=== PATIENT | female | born 1935 | race Caucasian/White ===

== ENCOUNTER 2017-05-09 22:09 | Inpatient (IN) | payer MEDICARE, OTHER ==
[2017-05-10] MEDS ORDERED: NORMAL SALINE 1000 ML 1,000 ML IV ONE (01:54)
[2017-05-10] MEDS ORDERED: MORPHINE SULFATE 10 MG/ML INJ IV ONE (01:54)
[2017-05-10] MEDS ORDERED: ONDANSETRON HCL INJ/PF 4 MG/2 ML SDV IV ONE ×2 (01:54→05:32)
[2017-05-10 02:19] LABS: ABSOLUTE LYMPHOCYTES (AUTO) 1.5 10^3/uL (0.5-4.7); ABSOLUTE MONOCYTES (AUTO) 1.2 10^3/uL (0.1-1.4); ABSOLUTE NEUT (AUTO) 11.7 10^3/uL (1.7-8.2); BASOPHILS % (AUTO) 0.3 % (0-2); HEMATOCRIT 44.6 % (36.0-47.0); HEMOGLOBIN 14.6 g/dL (12.0-15.5); HGB HCT DIFFERENCE -0.8; LYMPHOCYTES % (AUTO) 10.2 % (13-45); MEAN CORPUSCULAR HGB CONC 32.7 g/dL (32.0-36.0); MEAN CORPUSCULAR VOLUME 92 fl (80-97); MONOCYTES % (AUTO) 8.1 % (3-13); RED BLOOD COUNT 4.86 10^6/uL (3.72-5.28); RED CELL DISTRIBUTION WIDTH 12.8 % (11.5-14.0); SEGMENTED NEUTROPHILS % (AUTO) 81.4 % (42-78); WHITE BLOOD COUNT 14.4 10^3/uL (4.0-10.5)
[2017-05-10 02:37] LABS: ALANINE AMINOTRANSFERASE 30 U/L (9-52); ALBUMIN 4.1 g/dL (3.5-5.0); ALKALINE PHOSPHATASE 60 U/L (38-126); ANION GAP 19 (5-19); ASPARTATE AMINO TRANSFERASE 19 U/L (14-36); BILIRUBIN,DIRECT 0.4 mg/dL (0.0-0.4); BILIRUBIN,TOTAL 2.1 mg/dL (0.2-1.3); BLOOD UREA NITROGEN 19 mg/dL (7-20); CALCIUM 10.2 mg/dL (8.4-10.2); CARBON DIOXIDE 18 mmol/L (22-30); CHLORIDE 105 mmol/L (98-107); CREATININE RESULT 0.53 mg/dL (0.52-1.25); GLUCOSE 323 mg/dL (75-110); POTASSIUM 4.3 mmol/L (3.6-5.0); SODIUM 141.8 mmol/L (137-145); TOTAL PROTEIN 7.7 g/dL (6.3-8.2)
[2017-05-10 05:01] LABS: APPEARANCE,URINE CLEAR; BILIRUBIN,URINE NEGATIVE (NEGATIVE); GLUCOSE, URINE >=500 mg/dL (NEGATIVE); KETONES,URINE 20 mg/dL (NEGATIVE); LEUKOCYTE ESTERASE,URINE NEGATIVE (NEGATIVE); NITRITE,URINE NEGATIVE (NEGATIVE); PROTEIN,URINE NEGATIVE (NEGATIVE); URINE SPECIFIC GRAVITY 1.032; UROBILINOGEN,URINE NEGATIVE mg/dL (<2.0)
--- NOTE | 2017-05-10 05:09 | RADIOLOGY REPORT (SQ) ---
EXAM DESCRIPTION: CT ABD/PELVIS WITH IV ORAL COMPLETED DATE/TIME: 05/10/2017 4:46 am REASON FOR STUDY: abd pain, vomiting, no BM 4 days, hernia COMPARISON: None. TECHNIQUE: CT scan of the abdomen and pelvis performed using helical scanning technique with dynamic intravenous contrast injection. No oral contrast. Images reviewed with lung, soft tissue, and bone windows. Reconstructed coronal and sagittal MPR images reviewed. Delayed images for evaluation of the urinary system also acquired. All images stored on PACS. All CT scanners at this facility use dose modulation, iterative reconstruction, and/or weight based d osing when appropriate to reduce radiation dose to as low as reasonably achievable (ALARA). [facility]: Dose Right [facility]: CareDose [facility]: Dose Right [facility]: Teradose 4D [facility]: Netpulse CONTRAST TYPE AND DOSE: contrast/concentration: Isovue 370.00 mg/ml; Total Contrast Delivered: 90.0 ml; Total Saline Delivered: 70.0 ml RENAL FUNCTION: Creatinine 0.5 RADIATION DOSE: 1956 LIMITATIONS: None. FINDINGS: LOWER CHEST: Small peripheral interstitial markings at the lung bases. LIVER: Normal size. No masses or dilated ducts. Mild hepatic steatosis. SPLEEN: Normal size. No focal lesions. PANCREAS: No masses. No significant calcifications. No adjacent inflammation or peripancreatic fluid collections. Pancreatic duct not dilated. GALLBLADDER: Gallstones. No inflammatory changes to suggest cholecystitis. ADRENAL GLANDS: No significant masses or asymmetry. RIGHT KIDNEY AND URETER: No solid masses. No significant calcifications. No hydronephrosis or hyd roureter. LEFT KIDNEY AND URETER: No solid masses. No significant calcifications. No hydronephrosis or hydr oureter. AORTA AND VESSELS: No aneurysm. No dissection. Renal arteries, SMA, celiac without stenosis. Moderat e atherosclerosis. RETROPERITONEUM: No retroperitoneal adenopathy, hemorrhage or masses. BOWEL AND PERITONEAL CAVITY: 12 cm ventral herniation of small bowel of the anterior pelvic wall with facial defect measuring 3.4 cm. Moderate associated bowel wall thickening of the herniated segment. There is mild fluid distention of the small bowel before and after the hernia with air-fluid levels and S diameters measuring 2.7 cm. Orally ingested contrast is seen in the jejunum and diffuselydilu kolton in the proximal ileum previous to the herniation. Moderate colonic diverticulosis. APPENDIX: Normal. PELVIS: No mass or free fluid. Normal bladder. ABDOMINAL WALL: As above. BONES: 0.7 cm grade 1 L4 anterolisthesis, small-moderate desiccated disc bulge, and moderate lower maycol mbar spondylosis. The OTHER: No other significant finding. IMPRESSION: Small bowel hernia of the anterior pelvic wall with low-moderate grade obstruction and/o r ileus. Cholelithiasis. TECHNICAL DOCUMENTATION: JOB ID: [id number] Quality ID # [id number]: Final reports with documentation of one or more dose reduction techniques (e.g., Au tomated exposure control, adjustment of the mA and/or kV according to patient size, use of iterative reconstruction technique) 2010 [employer]- All Rights Reserved
--- NOTE | 2017-05-10 05:28 | ER Document Report ---
ED GI/ - General Chief Complaint: Abdominal Pain Stated Complaint: ABDOMINAL PAIN Time Seen by Provider: 05/10/17 01:45 Notes: Patient is an 81 year old female that comes to the ED for chief complaint of abdominal pain. She states for the past 4 days she has not had a bowel movement (had a normal one 4 days ago), and she has had 1-2 episodes of vomiting daily since that time. She denies fever, dysuria, flank pain, chest pain, shortness of breath. Pain is mid abdomen. PMH of DMII, hypothyroidism. TRAVEL OUTSIDE OF THE [place] IN LAST 30 DAYS: No - Related Data Allergies/Adverse Reactions: No Known Allergies Allergy (Verified 03/01/14 03:24) Past Medical History - General Information source: Patient, Relative - son - Social History Smoking Status: Never Smoker Frequency of alcohol use: None Drug Abuse: None Lives with: Family Family History: Reviewed & Not Pertinent - Past Medical History Cardiac Medical History: Reports: Hx Hypercholesterolemia, Hx Hypertension Endocrine Medical History: Reports: Hx Diabetes Mellitus Type 2 Renal/ Medical History: Denies: Hx Peritoneal Dialysis Musculoskeltal Medical History: Reports Hx Arthritis Past Surgical History: Reports: Hx Tonsillectomy - adnoids. - Immunizations Hx Diphtheria, Pertussis, Tetanus Vaccination: No Review of Systems - Review of Systems Constitutional: No symptoms reported EENT: No symptoms reported Cardiovascular: No symptoms reported Respiratory: No symptoms reported Gastrointestinal: See HPI Genitourinary: No symptoms reported Female Genitourinary: No symptoms reported Musculoskeletal: No symptoms reported Skin: No symptoms reported Hematologic/Lymphatic: No symptoms reported Neurological/Psychological: No symptoms reported Physical Exam - Vital signs Vitals: Temp Pulse Resp BP Pulse Ox 98.2 F 87 17 165/89 H 98 05/09/17 22:24 05/09/17 22:24 05/09/17 22:24 05/09/17 22:24 05/09/17 22:24 Interpretation: Normal - General General appearance: Alert, Other - patient with dry mucous membranes, slightly pale, but not in distress - HEENT Head: Normocephalic, Atraumatic Eyes: Normal Eyelashes: Normal Pupils: PERRL Mucous membranes: Dry Pharynx: Normal Neck: Normal - Respiratory Respiratory status: No respiratory distress Chest status: Nontender Breath sounds: Normal. No: Decreased air movement, Wheezing Chest palpation: Normal - Cardiovascular Rhythm: Regular. No: Tachycardia Heart sounds: Normal auscultation, S1 appreciated, S2 appreciated - Abdominal Inspection: Normal, Other - There is a large ventral lower abdominal hernia on examination, the area is not particularly tender, I have unable to reduce this although patient does not cry out or have significant pain with attempt to reduce. There is generalized abdominal tenderness otherwise. No guarding. Bowel sounds: Normal - Bowel sounds heard throughout including over the hernia - Back Back: Normal, Nontender. No: Tender, CVA tenderness - Extremities General upper extremity: Normal inspection, Nontender, Normal color, Normal ROM , Normal temperature General lower extremity: Normal inspection, Nontender, Normal color, Normal ROM , Normal temperature, Normal weight bearing. No: Georgie's sign - Neurological Neuro grossly intact: Yes Cognition: Normal Orientation: AAOx4 [place] Coma Scale Eye Opening: Spontaneous [place] Coma Scale Verbal: Oriented [place] Coma Scale Motor: Obeys Commands [place] Coma Scale Total: 15 Speech: Normal Motor strength normal: LUE, RUE, LLE, RLE Sensory: Normal - Psychological Associated symptoms: Normal affect, Normal mood - Skin Skin Temperature: Warm Skin Moisture: Dry Skin Color: Normal Course - Re-evaluation Re-evalutation: CBC showing leukocytosis at 14, patient will be admitted to the surgical service. Nonspecific. No anemia. Chemistry shows some hyperglycemia with slightly low bicarbonate but normal anion ashli. Giving IV fluids. LFTs normal. Direct Bilirubin normal. Lipase normal. Urinalysis also shows evidence of dehydration. No urinary tract infection. Patient asymptomatic on reevaluation, tolerating contrast well. CAT scan will be performed to further evaluate abdominal symptoms and hernia and rule out obstruction. CT showing hernia with small bowel, low to moderate grade obstruction versus ileus, cholelithiasis with no evidence of cholecystitis. Discussed with Dr. Ramsya. Will place NG tube, consult surgeon. Able to place 16 Fr nasogastric tube, placed on suction. 05/10/17 06:07 Spoke with surgeon regional office coordinator Dr. Samaniego he states he will come evaluate the patient.. Patient will be admitted to the surgical service. - Vital Signs Vital signs: Temp Pulse Resp BP Pulse Ox 98.2 F 87 17 165/89 H 98 05/09/17 22:24 05/09/17 22:24 05/09/17 22:24 05/09/17 22:24 05/09/17 22:24 - Laboratory Result Diagrams: 05/10/17 02:10 05/10/17 02:10 Laboratory results interpreted by me: 05/10/17 05/10/17 05/10/17 02:10 02:10 04:30 WBC 14.4 H Seg Neutrophils % 81.4 H Lymphocytes % 10.2 L Absolute Neutrophils 11.7 H Carbon Dioxide 18 L Glucose 323 H Total Bilirubin 2.1 H Urine Glucose (UA) >=500 H Urine Ketones 20 H - Diagnostic Test Radiology reviewed: Image reviewed, Reports reviewed Discharge - Discharge Clinical Impression: Abdominal pain Qualifiers: Abdominal location: generalized Qualified Code(s): R10.84 - Generalized abdominal pain Ventral hernia Qualifiers: Obstruction and gangrene presence: with obstruction but without gangrene Qualified Code(s): K43.6 - Other and unspecified ventral hernia with obstruction , without gangrene Vomiting Qualifiers: Vomiting type: unspecified Vomiting Intractability: non-intractable Nausea presence: with nausea Qualified Code(s): R11.2 - Nausea with vomiting, unspecified Disposition: ADMITTED INPATIENT Admitting Provider: Surgicalist Unit Admitted: Surgical Floor
[2017-05-10] MEDS: NORMAL SALINE 1000 ML 1,000 ML IV PRN ×3 (05:40→17:47)
--- NOTE | 2017-05-10 07:57 | RADIOLOGY REPORT (SQ) ---
EXAM DESCRIPTION: CHEST SINGLE VIEW COMPLETED DATE/TIME: 05/10/2017 7:37 am REASON FOR STUDY: ng tube placement COMPARISON: CT, 05/10/2017. EXAM PARAMETERS: NUMBER OF VIEWS: One view. TECHNIQUE: Single frontal radiographic view of the chest acquired. RADIATION DOSE: NA LIMITATIONS: Lower chest and upper abdomen only FINDINGS: NG tube tip in proximal port overlies the left upper abdominal quadrant -stomach likely in adequate position. Mild -moderate disc desiccation. Lower lungs appear unremarkable. Paucity of b owel gas of the upper abdomen. IMPRESSION: NG tube without evidence of complication. TECHNICAL DOCUMENTATION: JOB ID: [id number]
--- NOTE | 2017-05-10 07:59 | HISTORY AND PHYSICAL E ---
History and Physical NAME: WILL GALLOWAY : 1935 AGE: 81Y ADMITTED: 05/10/2017 ROOM: 535 CHIEF COMPLAINT: Abdominal pains. HPI: This is an 81-year-old female who has been complaining of periumbilical pains. She stated nausea and vomiting since 4 days ago. She said had her last bowel movement was about 4 days ago, but she claims she still passed flatus today. She came to the Emergency Room last night and had a CAT scan of the abdomen, which showed incarcerated umbilical hernia with small bowel contents and small bowel obstruction. The patient claimed that she had this hernia for the past couple of years, and has not been reduced, but she only had these pains and vomiting since or 4 days ago. Denies any fever or chills. No cough or shortness of breath. REVIEW OF SYSTEMS: As in HPI. No dysuria. No hearing or visual problems. No problems with balance and intact memory. The rest of the systems are unremarkable and GI as in HPI. SOCIAL HISTORY: Denies smoking, drinking or alcohol use. ALLERGIES: None known. PAST HISTORY: History of diabetes mellitus and hypothyroidism. She used to take Metformin and Synthroid but stopped taking them 3 months when she ran out of the medication. FAMILY HISTORY: Noncontributory. PHYSICAL EXAM: Well developed, well nourished, 81-year-old female, alert and oriented, complaining of abdominal pains. HEENT: Neck is supple, no thyromegaly. She has an NG tube right now and it has been draining greenish fluid. LUNGS: Her lungs were clear. HEART: Regular sinus rhythm. ABDOMEN: Soft with fair mass umbilicus around 10 cm in diameter with skin slightly erythematous and tender. I was unable to reduce the hernia. EXTREMITIES: No edema. IMPRESSION: Incarcerated umbilical hernia with small bowel obstruction. PLANS: 1. Hydrate. 2. For reduction of the hernia and possible repair with mesh in the OR today. 3. Keep the patient NPO. Start IV antibiotic therapy. DICTATING PHYSICIAN: CHINMAY DUMAS M.D. [id number] PHY#: [id number] ID: [id number] JOB#: [id number] ACCT: [id number] cc:Zion ESCOBAR MD
[2017-05-10] MEDS ORDERED: AMPICILLIN SOD/SULBACTAM 3 GM VIAL IV ONE ×2 (08:08→12:35)
[2017-05-10] MEDS ORDERED: HYDROMORPHONE HCL INJ/PF 2 MG/ML AMPULE ONE (08:44)
[2017-05-10] MEDS ORDERED: MIDAZOLAM 2 MG/2 ML INJ ONE (08:44)
[2017-05-10] MEDS ORDERED: FENTANYL CITRATE INJ/PF 100 MCG/2 ML AMPUL ONE ×2 (08:44)
[2017-05-10] MEDS ORDERED: ACETAMINOPHEN 100 ML IV ONE (08:45)
[2017-05-10] MEDS ORDERED: PROPOFOL INJ 200 MG/20 ML VIAL IV ONE (08:45)
[2017-05-10] MEDS ORDERED: AMPICILLIN SODIUM/SULBACTAM NA 3 GM in NORMAL SALINE 100 ML IV ONE (09:00)
[2017-05-10] MEDS ORDERED: BUPIVACAINE HCL 0.25 % INJ/PF (2.5 MG/1 ML) 30 ML VIAL ONE (09:40)
--- NOTE | 2017-05-10 10:22 | EKG REPORT ---
SEVERITY:- OTHERWISE NORMAL ECG - SINUS RHYTHM LEFT AXIS DEVIATION : Confirmed by: Mary Alice Browne MD 10-May-2017 10:21:17
[2017-05-10] MEDS ORDERED: BUPIVACAINE INJ/PF LIPOSOME/PF 266 MG/20 ML SDV ONE (10:33)
[2017-05-10] MEDS ORDERED: FENTANYL CITRATE INJ/PF 100 MCG/2 ML AMPUL IV PRN ×3 (10:35)
[2017-05-10] MEDS ORDERED: PROMETHAZINE HCL INJ 25 MG/1 ML VIAL IV PRN ×2 (10:35)
[2017-05-10] MEDS ORDERED: ONDANSETRON HCL INJ/PF 4 MG/2 ML SDV IV PRN ×2 (10:35→12:32)
[2017-05-10] MEDS ORDERED: MEPERIDINE HCL/PF INJ 25 MG/1 ML DISP.SYRIN IV PRN (10:35)
[2017-05-10] MEDS ORDERED: MORPHINE SULFATE 10 MG/ML INJ IV PRN (10:35)
[2017-05-10] MEDS ORDERED: DIPHENHYDRAMINE HCL 50 MG/ML VIAL IV PRN (10:35)
--- NOTE | 2017-05-10 12:31 | Operative Report ---
Operative Report DATE OF SURGERY: 05/10/17 PREOPERATIVE DIAGNOSIS: 1. Incarcerated abdominal wall hernia with small bowel. 2. Small bowel obstruction POSTOPERATIVE DIAGNOSIS: Same with intra-abdominal adhesions OPERATION: 1. Partial manual reduction of ventral wall hernia. 2. Intraoperative laparoscopic lysis of adhesions. 3. Completion reduction of ventral wall hernia laparoscopically with primary closure of umbilical hernia and mesh reinforcement using intraperitoneal position SURGEON: MERNA HUMPHRIES ANESTHESIA: GA TISSUE REMOVED OR ALTERED: None COMPLICATIONS: None ESTIMATED BLOOD LOSS: Scant INTRAOPERATIVE FINDINGS: See below PROCEDURE: The patient was evaluated by Dr. Humphries in the emergency department and deemed to require emergent exploratory laparoscopy, possible laparotomy, possible small bowel obstruction and repair of abdominal wall incarcerated hernia associated with small bowel obstruction. She is brought to the operating room where general anesthesia was induced. A nasogastric tube and Jordan catheter had been previously inserted in the emergency department. Surgical plan and surgical timeout was conducted Dr. Humphries proceeded to apply direct pressure to the abdominal wall hernia and was able to successfully reduce 75% of it. We could hear gurgling bowel being reduced. The abdominal wall was then prepped and draped in sterile fashion and instrumentation set up for laparoscopic approach A left upper quadrant stab was made with a knife and Veress needle inserted peritoneal cavity and pneumoperitoneum was established. Veress needle was removed, 5 mm port was inserted 5 mm flexible scope was inserted. Under direct visualization 3 additional ports were placed one in the left lower quadrant into with the right side one in the right upper and one in the right lower quadrant. Findings were significant for safe entry into the peritoneal cavity with all 4 ports. There was evidence of 3 loops of bowel that appeared to have been reduced during the external manipulation of the abdominal wall. These loops of bowel were injected, erythematous but not ischemic or necrotic. Photos were taken. The tissue that remained incarcerated and included a portion of omentum stuck to what appeared to be an additional loop of small bowel. Using a combination of gentle blunt, traction, sharp scissor as well as LigaSure device, we debrided the hernia sac, omentum and final remaining loop of small bowel stuck in the umbilical hernia. Portions of omentum were left in situ. Incarcerated loop of small bowel was injected but mostly edematous from the chronic inflammatory peel associated with its long residence in the hernia. The skin overlying the umbilicus was intact although somewhat bruised. We inspected the previously released small bowel loops and again they remain viable. There was no evidence of small bowel injury so I felt it was safe to proceed with umbilical herniorrhaphy using a laparoscopic approach We elected to close the abdominal wall defect which is approximately 5 cm in diameter with multiple interrupted #1 PDS sutures and this was affected using a disposable suture passer and the above suture placing 3 stitches in a figure-of- eight fashion. This nicely brought the fascial defect closed transversely. We now elected to place a [employer] Parietex polypropylene mesh, 15 cm in diameter, round variety which he brought onto the field after checking for expiration. Stitches were placed in the 12, 3, 6, and 9:00 positions using the #1 PDS suture. The mesh was moistened, rolled, and brought to the anterior abdominal wall 1 of the port site incisions. The mesh was unfolded and brought up to the anterior abdominal wall using the disposable suture passer. We then came around with 2 rows in a circumferential fashion of disposable tack application. We are very satisfied with the repair. There is no evidence of mechanical bleeding whatsoever. Of note during the procedure we did place a port in the suprapubic position. At this point I felt the operation was complete. Sponge and counts are correct. All ports removed under direct visualization, pneumoperitoneum evacuated, wounds closed with 3-0 Vicryl X Felder, diluted, was injected into the subcutaneous tissues and skin closed with benzoin and Steri-Strips. Patient tolerated procedure well and was extubated and then taken recovery
[2017-05-10] MEDS ORDERED: DEXTROSE 40% GEL 15 GM TUBE PO PRN ×2 (12:39)
[2017-05-10] MEDS ORDERED: GLUCAGON,HUMAN RECOMB 1 MG INJ IM PRN (12:39)
[2017-05-10] MEDS ORDERED: INSULIN REG, HUMAN 100 UNIT/ML 3 ML VIAL (PYX) SUBCUT PRN (12:39)
[2017-05-10] MEDS ORDERED: DEXTROSE 50%-WATER 25 GM/50 ML DISP.SYRIN IV PRN ×2 (12:39)
[2017-05-10] MEDS ORDERED: INSULIN REG, HUMAN 100 UNIT/ML 3 ML VIAL (PYX) ONE (13:05)
[2017-05-10] MEDS ORDERED: NEOSTIGMINE METHYLSULFATE 10 MG/10 ML VIAL ONE (14:24)
[2017-05-10] MEDS ORDERED: ONDANSETRON HCL INJ/PF 4 MG/2 ML SDV ONE (14:24)
[2017-05-10] MEDS ORDERED: GLYCOPYRROLATE INJ 0.4 MG/2 ML VIAL ONE (14:24)
[2017-05-10] MEDS ORDERED: SUCCINYLCHOLINE CHLORIDE INJ 200 MG/10 ML VIAL ONE (14:24)
[2017-05-10] MEDS ORDERED: ROCURONIUM BROMIDE INJ 50 MG/5 ML VIAL IV ONE (14:24)
[2017-05-10] MEDS: AMPICILLIN SODIUM/SULBACTAM NA 3 GM in NORMAL SALINE 100 ML IV SCH (17:47)
[2017-05-10] MEDS: MORPHINE SULFATE 10 MG/ML INJ IV PRN (20:53)
[2017-05-11] MEDS: AMPICILLIN SODIUM/SULBACTAM NA 3 GM in NORMAL SALINE 100 ML IV SCH ×3 (02:13→18:47)
[2017-05-11] MEDS: MORPHINE SULFATE 10 MG/ML INJ IV PRN (02:16)
[2017-05-11 07:55] LABS: FREE T3 2.38 pg/mL (2.77-5.27)
[2017-05-11 08:09] LABS: THYROID STIMULATING HORMONE 2.12 uIU/mL (0.47-4.68)
--- NOTE | 2017-05-11 11:13 | PROGRESS NOTE E ---
Progress Note NAME: WILL GALLOWAY : 1935 AGE: 81Y DATE: 05/11/2017 ROOM: 535 SUBJECTIVE: Patient had a post-laparoscopic ventral hernia repair done yesterday by Dr. Humphries for incarcerated hernia. There is no evidence of ischemic bowel. This morning patient had minimal pains. I will discontinue the NG tube and the Jordan and get her ambulating this morning. The abdominal dressing is dry and the rest of the abdomen is soft. DICTATING PHYSICIAN: CHINMAY DUMAS M.D. [id number] PHY#: [id number] ID: [id number] JOB#: [id number] ACCT: [id number] cc: >
[2017-05-12] MEDS: AMPICILLIN SODIUM/SULBACTAM NA 3 GM in NORMAL SALINE 100 ML IV SCH ×2 (02:28→14:03)
--- NOTE | 2017-05-12 10:18 | DISCHARGE SUMMARY E ---
Discharge Summary NAME: WILL GALLOWAY : 1935 AGE: 81Y ADMITTED: 05/10/2017 DISCHARGED: 05/12/2017 PROCEDURES DONE: 1. Manual reduction of ventral hernia. 2. Intraoperative laparoscopic lysis of adhesions. 3. Completion reduction of ventral wall hernia laparoscopically with primary closure of umbilical hernia and mesh reinforcement using intraperitoneal position. SURGEON: MERNA HUMPHRIES M.D. HOSPITAL COURSE: The patient complained of pains along the umbilical hernia and noted to have bowel obstruction. Dr. Humphries did above operation on 05/10/2017 on her day of admission. Today, the patient had a bowel movement and is tolerating clear-liquid diet, is afebrile and abdominal site has just minimal tenderness along the hernia repair site. The rest of the abdomen is soft, nontender. DISCHARGE PLAN: The plan is to increase her diet to soft diet today and if she tolerates this, she can be discharged to home. We will have a visiting nurse see her at home and since she lives with her son-in-law, who can take care of her, it is safe I think to discharge her to home. We will give her a prescription for pain pills with Percocet p.r.n., but she prefers taking just plain Tylenol if it is enough to take care of her pains, because the other medications make her feel sleepy. Will have Physical Therapy see her today to make sure she is able to ambulate well and do daily activities of living. Patient will be scheduled for followup in the surgical clinic in about a week, hopefully with Dr. Humphries. DICTATING PHYSICIAN: CHINMAY DUMAS M.D. [id number] PHY#: [id number] ID: [id number] JOB#: [id number] ACCT: [id number] cc:Daren PROCTOR PA >
[2017-05-12] MEDS ORDERED: ACETAMINOPHEN 325 MG TABLET PO PRN (10:20)
[2017-05-12 15:07] VITALS: BP 145/67
--- NOTE | 2017-05-12 18:58 | DISCHARGE SUMMARY E ---
Discharge Summary NAME: WILL GALLOWAY : 1935 AGE: 81Y ADMITTED: 05/10/2017 DISCHARGED: 05/12/2017 PROCEDURE DONE: On 05/10/17, reduction of incarcerated umbilical hernia and laparoscopic repair with mesh by Dr. Humphries. HOSPITAL COURSE: Postoperatively the patient did well. Her pain decreased the next day on 05/11/17 and tolerated clear liquids. On the day of discharge, the wound looks good with just minimal tenderness along the operative site. She is able to tolerate regular food. She claims she does not need any pain medications other than Tylenol. So she was discharged to take Tylenol 2 tablets p.o. q.6 h. as needed for pain and was scheduled to be followed up in the Surgical Clinic in about a week. DICTATING PHYSICIAN: CHINMAY DUMSA M.D. [id number] PHY#: [id number] ID: [id number] JOB#: [id number] ACCT: [id number] cc:Daren PROCTOR PA >
== END 2017-05-12 16:18 | disposition home health service (06) | DRG 355 ==
LOC: ER 22:09 → UNDOADMIN 05-10 07:24 → EH 05-10 07:24 → 5 05-10 13:52
PROVIDERS: ADMIT Surgery; ATTEND Surgery
PROC: 0D9670Z Drainage of Stomach with Drainage Device, Via Natural or Artificial Opening (ICD-10-PCS; 2017-05-10)
PROC: 0WUF4JZ Supplement Abdominal Wall with Synthetic Substitute, Percutaneous Endoscopic Approach (ICD-10-PCS; principal; 2017-05-10 09:30)
DX: K42.0 Umbilical hernia with obstruction, without gangrene (principal); E11.9 Type 2 diabetes mellitus without complications; E03.9 Hypothyroidism, unspecified; E78.00 Pure hypercholesterolemia, unspecified; I10 Essential (primary) hypertension; M19.90 Unspecified osteoarthritis, unspecified site; E86.0 Dehydration
CPT/HCPCS: 00750; 36415; 71010; 74177; 80053; 81001; 82962; 83690; 84439; 84443; 84481; 85025; 87040; 93005; 93010; 96361; 96374; 96375; 96376; 99285; C1781; C9290; G8978-GP; G8979-GP; G8980-GP; J0131; J0295; J0330; J1170; J1815; J2250; J2270; J2405; J2704; J3010; J3490; J7030

== ENCOUNTER 2017-07-17 21:23 | Inpatient (IN) | payer MEDICARE, OTHER ==
--- NOTE | 2017-07-17 21:31 | ER Document Report ---
ED General - General Stated Complaint: ABDOMINAL PAIN Time Seen by Provider: 07/17/17 21:29 Mode of Arrival: Medic Information source: Patient, Outside Facility Records Notes: 81-year-old female history of abdominal surgery 2 months ago presents with complaints of multiple falls as well as abdominal pain. Patient was noted by outside facility to have abdominal wall abscess intramural abscess. Patient was sent in for evaluation. pt did not ofllow up with surgeon TRAVEL OUTSIDE OF THE [place] IN LAST 30 DAYS: No - HPI Onset: Last week Onset/Duration: Persistent Quality of pain: Achy, Sharp Severity: Mild Pain Level: 1 Associated symptoms: Other Exacerbated by: Denies Relieved by: Denies Similar symptoms previously: No Recently seen / treated by doctor: Yes - Related Data Allergies/Adverse Reactions: atropine Adverse Reaction (Verified 07/17/17 22:43) meperidine [From Demerol] Adverse Reaction (Verified 07/17/17 22:43) cold Home Medications: Current Home Medications Potassium Chloride 20 meq PO DAILY 07/17/17 [History] Past Medical History - Social History Smoking Status: Never Smoker Cigarette use (# per day): No Chew tobacco use (# tins/day): No Smoking Education Provided: No Family History: Reviewed & Not Pertinent - Past Medical History Cardiac Medical History: Reports: Hx Hypercholesterolemia, Hx Hypertension Endocrine Medical History: Reports: Hx Diabetes Mellitus Type 2 Renal/ Medical History: Denies: Hx Peritoneal Dialysis Musculoskeltal Medical History: Reports Hx Arthritis Past Surgical History: Reports: Hx Tonsillectomy - adnoids. - Immunizations Hx Diphtheria, Pertussis, Tetanus Vaccination: No Review of Systems - Review of Systems Notes: REVIEW OF SYSTEMS: CONSTITUTIONAL : Denies fever, chills, or sweats. Denies recent illness. EENT: Denies eye, ear, throat, or mouth pain or symptoms. Denies nasal or sinus congestion or discharge. Denies throat, tongue, or mouth swelling or difficulty swallowing. CARDIOVASCULAR: Denies chest pain. Denies palpitations or racing or irregular heart beat. Denies ankle edema. RESPIRATORY: Denies cough, cold, or chest congestion. Denies shortness of breath, difficulty breathing, or wheezing. GASTROINTESTINAL: Admits to abdominal pain GENITOURINARY: Denies difficulty urinating, painful urination, burning, frequency, blood in urine, or discharge. FEMALE GENITOURINARY: Denies vaginal bleeding, heavy or abnormal periods, irregular periods. Denies vaginal discharge or odor. MUSCULOSKELETAL: Denies back or neck pain or stiffness. Denies joint pain or swelling. SKIN: Denies rash, lesions or sores. HEMATOLOGIC : Denies easy bruising or bleeding. LYMPHATIC: Denies swollen, enlarged glands. NEUROLOGICAL: Denies confusion or altered mental status. Denies passing out or loss of consciousness. Denies dizziness or lightheadedness. Denies headache. Denies weakness or paralysis or loss of use of either side. Denies problems with gait or speech. Denies sensory loss, numbness, or tingling. Denies seizures. PSYCHIATRIC: Denies anxiety or stress. Denies depression, suicidal ideation, or homicidal ideation. ALL OTHER SYSTEMS REVIEWED AND NEGATIVE. PHYSICAL EXAMINATION: GENERAL: Well-appearing, well-nourished and in no acute distress. HEAD: Atraumatic, normocephalic. EYES: Pupils equal round and reactive to light, extraocular movements intact, conjunctiva are normal. ENT: Nares patent, oropharynx clear without exudates. Moist mucous membranes. NECK: Normal range of motion, supple without lymphadenopathy LUNGS: Breath sounds clear to auscultation bilaterally and equal. No wheezes rales or rhonchi. HEART: Regular rate and rhythm without murmurs ABDOMEN: Distended abdomen erythematous around the umbilicus tender to palpation obvious mass Female : deferred Musculoskeletal: Normal range of motion, no pitting or edema. No cyanosis. NEUROLOGICAL: Cranial nerves grossly intact. Normal speech, normal gait. Normal sensory, motor exams PSYCH: Normal mood, normal affect. SKIN: Erythema around the umbilicus Dictation was performed using [employer] voice recognition software Physical Exam - Vital signs Vitals: Temp Resp 98.8 F 16 07/17/17 21:27 07/17/17 21:27 Course - Re-evaluation Re-evalutation: 07/17/17 23:02 I immediately evaluated the patient upon arrival to the ED, and Dr. Humphries evaluated the patient as well, he was awaiting her arrival. We agreed that the patient does not fact have abdominal wall abscess, antibiotics had already been given at [facility]. We attempted to open up the imaging but unfortunately is not compatible with her computers. The read does note the abscesses. Patient will be admitted to Dr. Varghese's service for further care - Vital Signs Vital signs: Temp Pulse Resp BP Pulse Ox 98.8 F 27 H 143/52 H 98 07/17/17 21:27 07/17/17 22:31 07/17/17 22:31 07/17/17 22:31 - Diagnostic Test Radiology reviewed: Reports reviewed - Intra-abdominal abscess Discharge - Discharge Clinical Impression: Abdominal wall abscess Condition: Stable Disposition: ADMITTED INPATIENT Admitting Provider: Surgicalist Unit Admitted: Telemetry
--- NOTE | 2017-07-17 22:05 | PDOC H&P ---
History of Present Illness Patient complains of: Abdominal pain weakness History of Present Illness: WILL GALLOWAY is a 81 year old female who is well-known to [facility]. She was transferred from [facility] this evening for evaluation and treatment of abdominal wall infection. Her relevant past medical surgical history significant for incarcerated abdominal wall hernia repaired by Dr. Humphries on May 10, 2017. This was a laparoscopic repair with a Covidien mesh. The patient tolerated procedure well and was discharged home. She never followed up with [place] [facility] postoperatively so the exact nature of her clinical course for the last 2 months is somewhat vague. It is primarily obtained by personal conversation with her and her son. Apparently patient lives with her son, and has been seen at [facility] and [facility] for the last several weeks. She has been admitted for falls and for low potassium. We do not have those records. Because of persisting fall weakness and decreased p.o. intake she was seen at [facility] this afternoon where she was found to have abdominal wall tenderness, leukocytosis, and CT scan findings consistent with abdominal wall infection with air and fluid. The surgeon consulting on the patient felt uncomfortable proceeding with treatment so transfer the patient to [facility] for further care. The patient seen in the emergency department and found to be hemodynamically stable, alert and oriented. She was admitted for further treatment, and surgical intervention. Unfortunately the CT scan could not be read on our computers. Past Medical History Cardiac Medical History: Reports: Hyperlipidema, Hypertension Endocrine Medical History: Reports: Diabetes Mellitus Type 2, Hypothyroidism Musculoskeltal Medical History: Reports: Arthritis Past Surgical History Past Surgical History: Reports: Tonsillectomy - adnoids., Other - Abdominal wall hernia repair May 10, 2017 Dr. Humphries, laparoscopic with Social History Smoking Status: Never Smoker Frequency of Alcohol Use: None Hx Recreational Drug Use: No Drugs: None Hx Prescription Drug Abuse: No Family History Family History: Reviewed & Not Pertinent Parental Family History Reviewed: Yes Children Family History Reviewed: Yes Sibling(s) Family History Reviewed.: Yes Medication/Allergy Home Medications: Levothyroxine Sodium [Synthroid 0.075 mg Tablet] 0.075 mg PO DAILY 05/10/17 Metformin HCl [Glucophage] 1,000 mg PO BIDACBS 05/10/17 Allergies/Adverse Reactions: No Known Allergies Allergy (Verified 03/01/14 03:24) Review of Systems Constitutional: PRESENT: fever(s), other - But has not taken her temperature Eyes: ABSENT: visual disturbances Ears: ABSENT: hearing changes Cardiovascular: ABSENT: chest pain, dyspnea on exertion, edema, orthropnea, palpitations Respiratory: PRESENT: other - Mild shortness of breath Gastrointestinal: PRESENT: other - She states she has been having bowel movements but inconsistently. She denies nausea and vomiting. Neurological: PRESENT: weakness Physical Exam General appearance: PRESENT: mild distress Head exam: PRESENT: normocephalic Eye exam: PRESENT: EOMI Mouth exam: PRESENT: dry mucosa Neck exam: PRESENT: full ROM Respiratory exam: PRESENT: clear to auscultation tani, retraction - Mild retraction Cardiovascular exam: PRESENT: RRR GI/Abdominal exam: PRESENT: other - Distended centrally especially around the umbilicus with cellulitic changes. The periumbilical tissue is tight. There is a generalized masslike effect extending from the central periumbilical area. Skin exam: PRESENT: dry Results Laboratory Results: Laboratory results from [facility] team will assume include white blood cell count 14,000 hemoglobin 11.3 platelets 3 82 units and creatinine 80.8 blood sugar 224 sodium 129 potassium 4.1 albumin 2.4 total bili 0.86 BNP 1433 Assessment & Plan - Diagnosis (1) Abdominal wall abscess Is this a current diagnosis for this admission?: Yes Plan: Appears to be related to previous abdominal surgery involving mesh placement in the peritoneal cavity. Cannot pull up the images of the CT scan chest performed at [facility]. Nonetheless based on the patient's physical exam findings, and written description of the CT scan findings, I believe we are dealing with a complex abdominal wall infection. Plan: 1. We will admit the patient keep on IV fluids n.p.o. and install Jordan catheter. 2. We will start intravenous antibiotics 3. We will place sodium. Will also start Accu-Cheks and supplement the patient accordingly., 4. Will likely take patient to the operating room tomorrow morning and proceed with exploratory abdominal wall debridement, laparotomy necessary surgery. I explained to the patient and her son that she will likely be very sick and will likely require intensive care unit stay. (2) Ventral hernia Qualifiers: Obstruction and gangrene presence: without obstruction or gangrene Qualified Code(s): K43.9 - Ventral hernia without obstruction or gangrene Is this a current diagnosis for this admission?: No Plan: Status post operative repair [address] Humphries with mesh, laparoscopic approach. (3) Hyponatremia Is this a current diagnosis for this admission?: Yes - Time Time Spent: 50 to 70 Minutes Critical Time spent with patient: 15-24 minutes Medications reviewed and adjusted accordingly: Yes - Inpatient Certification Based on my medical assessment, after consideration of the patient's comorbidities, presenting symptoms, or acuity I expect that the services needed warrant INPATIENT care.: Yes I certify that my determination is in accordance with my understanding of Medicare's requirements for reasonable and necessary INPATIENT services [42 CFR 412.3e].: Yes Medical Necessity: Need For IV Fluids, Need for Pain Control, Need for IV Antibiotics, Need for Surgery
[2017-07-17] MEDS ORDERED: PIPERACILLIN/TAZOBACTAM 3.375 GM VIAL IV PRN (22:17)
[2017-07-17] MEDS: NORMAL SALINE 1000 ML 1,000 ML IV PRN (22:44)
[2017-07-17] MEDS ORDERED: PIPERACILLIN SODIUM/TAZOBACTAM 3.375 GM in NORMAL SALINE 100 ML IV ONE (23:00)
[2017-07-18 07:23] LABS: ABSOLUTE LYMPHOCYTES (AUTO) 0.7 10^3/uL (0.5-4.7); ABSOLUTE NEUT (AUTO) 8.6 10^3/uL (1.7-8.2); BASOPHILS % (AUTO) 0.5 % (0-2); EOSINOPHILS % (AUTO) 0.1 % (0-6); HEMATOCRIT 29.1 % (36.0-47.0); HEMOGLOBIN 9.8 g/dL (12.0-15.5); HGB HCT DIFFERENCE 0.3; LYMPHOCYTES % (AUTO) 7.2 % (13-45); MEAN CORPUSCULAR HEMOGLOBIN 28.8 pg (27.0-33.4); MEAN CORPUSCULAR HGB CONC 33.6 g/dL (32.0-36.0); MEAN CORPUSCULAR VOLUME 86 fl (80-97); MONOCYTES % (AUTO) 9.2 % (3-13); RED BLOOD COUNT 3.39 10^6/uL (3.72-5.28); RED CELL DISTRIBUTION WIDTH 13.7 % (11.5-14.0); WHITE BLOOD COUNT 10.4 10^3/uL (4.0-10.5)
[2017-07-18 07:34] LABS: ANION GAP 13 (5-19); BLOOD UREA NITROGEN 6 mg/dL (7-20); CALCIUM 8.6 mg/dL (8.4-10.2); CARBON DIOXIDE 18 mmol/L (22-30); CHLORIDE 104 mmol/L (98-107); CREATININE RESULT 0.48 mg/dL (0.52-1.25); GLUCOSE 168 mg/dL (75-110); POTASSIUM 3.6 mmol/L (3.6-5.0); SODIUM 134.7 mmol/L (137-145)
[2017-07-18 07:39] LABS: PROTHROMBIN TIME 17.2 SEC (11.4-15.4)
[2017-07-18 07:40] LABS: PARTIAL THROMBOPLASTIN TIME 36.1 SEC (23.5-35.8)
[2017-07-18] MEDS ORDERED: PROPOFOL INJ 200 MG/20 ML VIAL IV ONE (08:53)
[2017-07-18] MEDS ORDERED: FENTANYL CITRATE INJ/PF 250 MCG/5 ML AMPULE ONE (08:53)
[2017-07-18] MEDS ORDERED: MIDAZOLAM 2 MG/2 ML INJ ONE (08:53)
[2017-07-18] MEDS ORDERED: VECURONIUM BROMIDE INJ 10 MG VIAL IV ONE (09:01)
[2017-07-18] MEDS ORDERED: ROCURONIUM BROMIDE INJ 50 MG/5 ML VIAL IV ONE (09:01)
[2017-07-18] MEDS ORDERED: SUCCINYLCHOLINE CHLORIDE INJ 200 MG/10 ML VIAL ONE (09:01)
[2017-07-18] MEDS ORDERED: LIDOCAINE 2% INJ-PF (20 MG/ML) 10 ML AMPUL ONE (09:01)
[2017-07-18] MEDS ORDERED: DIPHENHYDRAMINE HCL 50 MG/ML VIAL IV PRN (10:19)
[2017-07-18] MEDS ORDERED: ONDANSETRON HCL INJ/PF 4 MG/2 ML SDV IV PRN (10:19)
[2017-07-18] MEDS ORDERED: PROMETHAZINE HCL INJ 25 MG/1 ML VIAL IV PRN (10:19)
[2017-07-18] MEDS ORDERED: LABETALOL HCL INJ 20 MG/4 ML DISP.SYRIN IV PRN (10:19)
[2017-07-18] MEDS ORDERED: MORPHINE SULFATE 10 MG/ML INJ IV PRN ×2 (10:19→15:30)
[2017-07-18] MEDS ORDERED: FENTANYL CITRATE INJ/PF 100 MCG/2 ML AMPUL IV PRN ×3 (10:19)
--- NOTE | 2017-07-18 10:57 | Operative Report ---
Operative Report DATE OF SURGERY: 07/21/17 PREOPERATIVE DIAGNOSIS: Abdominal wall infection with cellulitis and abscess POSTOPERATIVE DIAGNOSIS: same with deep soft tissue infection of abdominal wall involving fascia OPERATION: Exploration of the abdominal wall at site of previous umbilical herniorrhaphy, excisional debridement of subcutaneous tissue and fibrinous debris, wound irrigation and packing. Left subclavian central venous access catheter placement SURGEON: MERNA HUMPHRIES ANESTHESIA: GA TISSUE REMOVED OR ALTERED: Devitalized subcutaneous tissue and fibrinous debris COMPLICATIONS: None ESTIMATED BLOOD LOSS: 100 cc INTRAOPERATIVE FINDINGS: See below PROCEDURE: In review the patient is an 81-year-old white female, 2 months status post umbilical herniorrhaphy by Dr. Humphries using a combined primary closure affected percutaneously, with intraperitoneal placed Covidien mesh, all performed laparoscopically. The procedure was performed at [facility]. The patient was lost to follow-up, then presented to the emergency department at [facility] with abdominal wall infection. She was transferred to [facility] for definitive care. Her CT scan with oral contrast at [facility] was reviewed carefully. This revealed irregular multiloculated air and fluid collections involving the anterior abdominal wall, tracking cephalad and caudad in relation to the umbilicus mostly on the right side of the abdominal wall, insinuating itself between fascial layers. There was no evidence of bowel obstruction, fistula, or other evidence of peritoneal violation. She is now taken to the operating room for abdominal wall debridement as she is septic. The patient was brought to the [facility] operating room at approximately 9:40 AM on July 18 where she underwent general anesthesia. Left arm was brought to patient's side, and using sterile technique with the central line bundle kit, a left subclavian central venous access catheter was inserted without difficulty using Seldinger technique. Biopatch sterile dressing applied. Patient had a previous placed Jordan catheter which is draining effectively. The abdomen was prepped and draped sterile fashion and instrumentation set up for open surgery Surgical plan and surgical timeout were conducted. The findings were significant for localized abdominal wall distention above and just to the right of the umbilicus with erythema and firmness. Therefore I elected to make a midline incision above and just to the right of the umbilicus and then just below the umbilicus. Of note there was no evidence of cutaneous wound. The percutaneous stitch pull-up site created during the previous operation showed no evidence of infection per se. The subcutaneous tissue was divided sharply. Once we got into the abscess, approximately 100 cc of foul- smelling pus was evacuated along with air. The incision full length was approximately 15 cm long. The subcutaneous tissue was very thick and indurated and lobulated in areas. We got down to the base of the abscess which had an irregular floor to it. Inferiorly that is below the umbilicus and at the level of the umbilicus it appeared to be in continuity with the rectus fascia, however again the tissue was very thickened and indurated so it precluded easy separation. Cephalad to the umbilicus the pus pocket tract towards the patient' s right and in between the first and second layers of the abdominal wall fascia. Again the tissue is very disrupted here but it did separate into reasonably possible smooth planes. At the level of the umbilicus with a previous PDS sutures were placed to close the fascia, there were a few degenerating fragments of suture left and these were trimmed. At no point could I penetrate the fascia bluntly with an index finger, nor was there any evidence of bowel or even mesh visualized. Therefore this entire operation was performed outside of the peritoneal cavity. I proceeded to debride chunks of non-viable subcutaneous tissue around the perimeter of the previously described wound. I did not debride any the fascial planes as they appeared viable. Wound was irrigated with 2-1/2 L of saline. Again the wound inspected carefully for any evidence of mass or violation of the peritoneal cavity and there was none. There was still some firmness around the perimeter of the wound involving the distant portion of the abdominal wall but there was no indication to debride any more vigorously than we had to this point. I felt like we had done a very appropriately aggressive damage control type debridement of this abdominal wall leaving her fascia and musculature intact without violating the peritoneal cavity. Wound was packed open with Betadine soaked Kerlix. She was taken to intensive care unit in guarded condition, intubated. Chest x-ray pending at time of dictation
--- NOTE | 2017-07-18 11:39 | RADIOLOGY REPORT (SQ) ---
EXAM DESCRIPTION: CHEST SINGLE VIEW COMPLETED DATE/TIME: 07/18/2017 11:30 am REASON FOR STUDY: s/p CVP COMPARISON: 05/10/2017 EXAM PARAMETERS: NUMBER OF VIEWS: One view TECHNIQUE: Single frontal radiograph of the chest. RADIATION DOSE: N/A LIMITATIONS: None. FINDINGS: TEMPORARY SUPPORT DEVICES:ET tube at the willem. Should be pulled back approximately 2 cm . NG tube courses below the kalen-diaphragm in to the stomach. Central venous access catheter tip is in expected location. Cavoatrial junction. LUNGS AND PLEURA: No opacities. No effusions. No masses. No pneumothorax. MEDIASTINUM AND HILAR STRUCTURES: No masses. Contour normal. HEART AND VASCULAR STRUCTURES: Heart normal in size. normal vascularity. Aorta normal for age. BONES: No acute findings. OTHER: No other significant finding. IMPRESSION: NO ACUTE RADIOGRAPHIC FINDING IN THE CHEST. ETT at the willem and should be pulled back 2 cm. Nasogastric tube and venous access catheter in expected location. TECHNICAL DOCUMENTATION: JOB ID: [id number] [employer]- All Rights Reserved
[2017-07-18 12:38] LABS: ARTERIAL BLOOD BASE EXCESS -8.5 mmol/L; ARTERIAL BLOOD O2 SATURATION 99.7 % (94-98)
--- NOTE | 2017-07-18 14:28 | PDOC CONSULTATION ---
Consultation Consult Date: 07/18/17 Attending physician:: MERNA HUMPHRIES Consult reason:: Medical management History of Present Illness Admission Date/PCP: 07/17/17 22:06 History of Present Illness: WILL GALLOWAY is a 81 year old female who is [facility] She was transferred from [facility] this evening for evaluation and treatment of abdominal wall infection. Her relevant past medical surgical history significant for incarcerated abdominal wall hernia repaired by Dr. Humphries on May 10, 2017. This was a laparoscopic repair with a Covidien mesh. The patient tolerated procedure well and was discharged home. She never followed up with [facility] postoperatively so the exact nature of her clinical course for the last 2 months is somewhat vague. It is primarily obtained by personal conversation with her and her son. Apparently patient lives with her son, and has been seen at [facility] and [facility] for the last several weeks. She has been admitted for falls and for low potassium. We do not have those records. Because of persisting fall weakness and decreased p.o. intake she was seen at [facility] this afternoon where she was found to have abdominal wall tenderness, leukocytosis, and CT scan findings consistent with abdominal wall infection with air and fluid. The surgeon consulting on the patient felt uncomfortable proceeding with treatment so transfer the [facility] for further care. Dr. Humphries perform drainage of the abscess reportedly involving superficial to the fascia line without intra-abdominal involvement. The patient was maintained on ventilator and was transferred to the intensive care unit, consultation was made to the hospitalist service for medical management and ventilator management. Patient currently intubated therefore information unobtainable from the patient. Information obtained from prior records, as well as emergency room records. Past Medical History Past Medical History: Medication reconciliation pending verification from the patient's pharmacist Cardiac Medical History: Reports: Hyperlipidema, Hypertension Endocrine Medical History: Reports: Diabetes Mellitus Type 2, Hypothyroidism Musculoskeltal Medical History: Reports: Arthritis Psychiatric Medical History: Denies: Depression Past Surgical History Past Surgical History: Reports: Tonsillectomy - adnoids., Other - Abdominal wall hernia repair May 10, 2017 Dr. Humphries, laparoscopic with Social History Information Source: [facility] Records Smoking Status: Never Smoker Frequency of Alcohol Use: None Hx Recreational Drug Use: No Drugs: None Hx Prescription Drug Abuse: No - Advance Directive Resuscitation Status: Full Code Family History Family History: Other - Unknown at this time unobtainable from the patient. Parental Family History Reviewed: No Children Family History Reviewed: NA Sibling(s) Family History Reviewed.: NA Medication/Allergy Home Medications: Potassium Chloride 20 meq PO DAILY 07/17/17 Allergies/Adverse Reactions: atropine Adverse Reaction (Verified 07/17/17 22:43) meperidine [From Demerol] Adverse Reaction (Verified 07/17/17 22:43) cold Review of Systems ROS unobtainable: Due to endotracheal tube, Due to mental status Physical Exam Vital Signs: Temp Pulse Resp BP Pulse Ox 98.4 F 82 12 128/48 H 99 07/18/17 11:25 07/18/17 11:25 07/18/17 11:25 07/18/17 11:25 07/18/17 11:25 Intake & Output 07/17/17 07/18/17 07/19/17 06:59 06:59 06:59 Intake Total 1099 4200 Output Total 300 3575 Balance 799 625 General appearance: PRESENT: no acute distress, obese, other - Intubated and sedated Head exam: PRESENT: normocephalic Eye exam: PRESENT: conjunctiva pale Ear exam: ABSENT: bleeding, drainage Mouth exam: PRESENT: moist, neck supple Neck exam: ABSENT: carotid bruit, JVD, lymphadenopathy, tracheal deviation Respiratory exam: PRESENT: clear to auscultation tani, rhonchi - Few bilateral, symmetrical, unlabored. ABSENT: accessory muscle use, rales, stridor, wheezes Cardiovascular exam: PRESENT: RRR, +S1, +S2. ABSENT: gallop GI/Abdominal exam: PRESENT: normal bowel sounds, soft. ABSENT: ascites, distended, organolmegaly, rigid, tenderness Rectal exam: PRESENT: deferred Extremities exam: PRESENT: other - Trace pretibial edema. ABSENT: clubbing Neurological exam: PRESENT: altered - Sedated and intubated. On propofol drip. Psychiatric exam: ABSENT: agitated Focused psych exam: ABSENT: restlessness Skin exam: PRESENT: dry, warm. ABSENT: cyanosis Results Laboratory Results: 07/18/17 07:12 07/18/17 07:12 07/18/17 07/18/17 07/18/17 07:12 07:12 09:14 WBC 10.4 RBC 3.39 L Hgb 9.8 L Hct 29.1 L MCV 86 MCH 28.8 MCHC 33.6 RDW 13.7 Plt Count 323 Seg Neutrophils % 83.0 H Lymphocytes % 7.2 L Monocytes % 9.2 Eosinophils % 0.1 Basophils % 0.5 Absolute Neutrophils 8.6 H Absolute Lymphocytes 0.7 Absolute Monocytes 1.0 Absolute Eosinophils 0.0 Absolute Basophils 0.0 Carbonic Acid HCO3/H2CO3 Ratio ABG pH ABG pCO2 ABG pO2 ABG HCO3 ABG O2 Saturation ABG Base Excess FiO2 Sodium 134.7 L Potassium 3.6 Chloride 104 Carbon Dioxide 18 L Anion Gap 13 BUN 6 L Creatinine 0.48 L Est GFR ( Amer) > 60 Est GFR (Non-Af Amer) > 60 Glucose 168 H Calcium 8.6 Blood Type O NEGATIVE Antibody Screen NEGATIVE 07/18/17 12:15 WBC RBC Hgb Hct MCV MCH MCHC RDW Plt Count Seg Neutrophils % Lymphocytes % Monocytes % Eosinophils % Basophils % Absolute Neutrophils Absolute Lymphocytes Absolute Monocytes Absolute Eosinophils Absolute Basophils Carbonic Acid 1.28 HCO3/H2CO3 Ratio 14:1 ABG pH 7.25 L ABG pCO2 42.4 ABG pO2 374.2 H ABG HCO3 18.2 L ABG O2 Saturation 99.7 H ABG Base Excess -8.5 FiO2 70% Sodium Potassium Chloride Carbon Dioxide Anion Gap BUN Creatinine Est GFR ( Amer) Est GFR (Non-Af Amer) Glucose Calcium Blood Type Antibody Screen Impressions: Chest X-Ray 07/18/17 00:00 IMPRESSION: NO ACUTE RADIOGRAPHIC FINDING IN THE CHEST. ETT at the willem and should be pulled back 2 cm. Nasogastric tube and venous access catheter in expected location. Assessment & Plan - Diagnosis (1) Respiratory failure, post-operative Is this a current diagnosis for this admission?: Yes (2) Essential hypertension Is this a current diagnosis for this admission?: Yes (3) Hyperlipidemia Qualifiers: Hyperlipidemia type: unspecified Qualified Code(s): E78.5 - Hyperlipidemia , unspecified Is this a current diagnosis for this admission?: Yes (4) Type 2 diabetes mellitus Qualifiers: Diabetes mellitus complication status: with unspecified complications Diabetes mellitus truck terminal manager insulin use: unspecified truck terminal manager insulin use status Qualified Code(s): E11.8 - Type 2 diabetes mellitus with unspecified complications (5) Degenerative joint disease Qualifiers: Osteoarthritis location: unspecified site Osteoarthritis type: unspecified Qualified Code(s): M19.90 - Unspecified osteoarthritis, unspecified site Is this a current diagnosis for this admission?: Yes (6) Hypothyroidism (acquired) Is this a current diagnosis for this admission?: Yes (7) Abdominal wall abscess Is this a current diagnosis for this admission?: Yes - Time Time Spent: 50 to 70 Minutes - Plan Summary Plan Summary: We will begin weaning ventilator per pulmonary protocol. Continue IV hydration. Agree with broad-spectrum antibiotic. Monitor electrolytes and follow-up chest x-ray in the morning. DVT prophylaxis with SCDs and LINDA hose. Sliding scale insulin coverage every 6 hours. If stable in the morning likely extubate. Thank you so much for this consultation, we will follow the patient with you.
[2017-07-18] MEDS ORDERED: DEXTROSE 50%-WATER 25 GM/50 ML DISP.SYRIN IV PRN ×2 (14:45)
[2017-07-18] MEDS ORDERED: GLUCAGON,HUMAN RECOMB 1 MG INJ IM PRN (14:45)
[2017-07-18] MEDS ORDERED: INSULIN REG, HUMAN 100 UNIT/ML 3 ML VIAL (PYX) SUBCUT PRN (14:45)
[2017-07-18] MEDS ORDERED: DEXTROSE 40% GEL 15 GM TUBE PO PRN ×2 (14:45)
[2017-07-18] MEDS: PIPERACILLIN SODIUM/TAZOBACTAM 3.375 GM in NORMAL SALINE 100 ML IV SCH ×2 (15:22→18:07)
[2017-07-18] MEDS ORDERED: NOREPINEPHRINE BITARTRATE INJ/PF 4 MG/4 ML SDV IV ONE (16:10)
[2017-07-18] MEDS ORDERED: PHENYLEPHRINE HCL INJ/PF 10 MG/1 ML SDV ONE (16:44)
[2017-07-18] MEDS ORDERED: DOPAMINE HCL/DEXTROSE 5%-WATER 800 MG/250 ML RTUINJ IV ONE (17:07)
[2017-07-18 17:22] LABS: ARTERIAL BLOOD BASE EXCESS -7.5 mmol/L
[2017-07-18 17:32] LABS: ANION GAP 9 (5-19); BLOOD UREA NITROGEN 8 mg/dL (7-20); CALCIUM 7.5 mg/dL (8.4-10.2); CARBON DIOXIDE 18 mmol/L (22-30); CHLORIDE 110 mmol/L (98-107); CREATININE RESULT 0.46 mg/dL (0.52-1.25); GLUCOSE 196 mg/dL (75-110); MAGNESIUM 1.5 mg/dL (1.6-2.3); POTASSIUM 3.5 mmol/L (3.6-5.0); SODIUM 136.5 mmol/L (137-145)
[2017-07-18] MEDS ORDERED: MIDAZOLAM HCL 100 ML IV ONE (17:43)
[2017-07-18] MEDS: DEXTROSE 5%-WATER 250 ML with PHENYLEPHRINE HCL 40 MG IV PRN ×4 (17:51→18:09)
--- NOTE | 2017-07-18 18:07 | RADIOLOGY REPORT (SQ) ---
EXAM DESCRIPTION: CHEST SINGLE VIEW COMPLETED DATE/TIME: 07/18/2017 5:48 pm REASON FOR STUDY: ET tube placement check COMPARISON: 07/18/2017 at 1300 hours EXAM PARAMETERS: NUMBER OF VIEWS: One view. TECHNIQUE: Single frontal radiographic view of the chest acquired. RADIATION DOSE: NA LIMITATIONS: None. FINDINGS: LUNGS AND PLEURA: No acute opacities, masses or pneumothorax. No pleural effusion. MEDIASTINUM AND HILAR STRUCTURES: Stable. HEART AND VASCULAR STRUCTURES: Stable. BONES: No acute findings. HARDWARE: Endotracheal tube tip is approximately 3 cm above the level of the willem. Left subclavian central venous catheter tip overlies the SVC below the level of the willem. Nasogastric catheters p resent with side port overlying the body of the stomach. OTHER: No other significant finding. IMPRESSION: Endotracheal tube tip is approximately 3 cm above the level of the willem. Left subclav ross central venous catheter tip overlies the SVC below the level of the willem. Nasogastric catheter s present with side port overlying the body of the stomach. TECHNICAL DOCUMENTATION: JOB ID: [id number]
[2017-07-18] MEDS: PROPOFOL 100 ML IV PRN ×2 (18:08→23:15)
[2017-07-18] MEDS ORDERED: MAGNESIUM SULFATE/D5W 1 GM/100 ML RTUPB IV ONE ×2 (18:31→20:45)
[2017-07-18] MEDS ORDERED: POTASSI CL 20 MEQ/50 ML RIDER 20 MEQ/50 ML RTUPB IV ONE (18:31)
[2017-07-18] MEDS ORDERED: DOPAMINE HCL 800 MG/D5W 250 ML IV PRN (20:36)
[2017-07-18] MEDS ORDERED: MIDAZOLAM HCL 100 ML IV PRN (20:37)
[2017-07-18] MEDS ORDERED: NORMAL SALINE 1000 ML 1,000 ML IV ONE (20:45)
--- NOTE | 2017-07-18 22:00 | EKG REPORT ---
SEVERITY:- ABNORMAL ECG - SINUS RHYTHM LEFT AXIS DEVIATION NONSPECIFIC T ABNORMALITIES, LATERAL LEADS : Confirmed by: Ruma Wolff 18-Jul-2017 21:59:48
[2017-07-18] MEDS: POTASSIUM CHLORIDE 20 MEQ/50 ML RTU IV SCH (23:16)
[2017-07-19] MEDS: POTASSIUM CHLORIDE 20 MEQ/50 ML RTU IV SCH (01:55)
[2017-07-19] MEDS: PIPERACILLIN SODIUM/TAZOBACTAM 3.375 GM in NORMAL SALINE 100 ML IV SCH ×3 (01:55→17:18)
[2017-07-19 05:43] LABS: ARTERIAL BLOOD BASE EXCESS -4.6 mmol/L; ARTERIAL BLOOD O2 SATURATION 98.7 % (94-98); HEMATOCRIT 29.8 % (36.0-47.0); HGB HCT DIFFERENCE 0.2; MEAN CORPUSCULAR HEMOGLOBIN 29.1 pg (27.0-33.4); MEAN CORPUSCULAR HGB CONC 33.4 g/dL (32.0-36.0); MEAN CORPUSCULAR VOLUME 87 fl (80-97); RED BLOOD COUNT 3.43 10^6/uL (3.72-5.28); RED CELL DISTRIBUTION WIDTH 13.9 % (11.5-14.0); WHITE BLOOD COUNT 10.3 10^3/uL (4.0-10.5)
[2017-07-19 05:54] LABS: ANION GAP 10 (5-19); BLOOD UREA NITROGEN 8 mg/dL (7-20); CARBON DIOXIDE 20 mmol/L (22-30); CHLORIDE 116 mmol/L (98-107); CREATININE RESULT 0.45 mg/dL (0.52-1.25); GLUCOSE 169 mg/dL (75-110); MAGNESIUM 2.1 mg/dL (1.6-2.3); POTASSIUM 4.3 mmol/L (3.6-5.0); SODIUM 146.1 mmol/L (137-145); TRIGLYCERIDES 122 mg/dL (<150)
[2017-07-19 06:15] LABS: ARTERIAL BLOOD BASE EXCESS -6.9 mmol/L; ARTERIAL BLOOD O2 SATURATION 98.5 % (94-98)
[2017-07-19] MEDS: NORMAL SALINE 1000 ML 1,000 ML IV PRN (06:42)
--- NOTE | 2017-07-19 07:39 | RADIOLOGY REPORT (SQ) ---
EXAM DESCRIPTION: CHEST SINGLE VIEW COMPLETED DATE/TIME: 07/19/2017 6:09 am REASON FOR STUDY: INTUBATED PATIENT COMPARISON: 07/18/2017. EXAM PARAMETERS: NUMBER OF VIEWS: One view. TECHNIQUE: Single frontal radiographic view of the chest acquired. RADIATION DOSE: NA LIMITATIONS: None. FINDINGS: LUNGS AND PLEURA: No opacities, masses or pneumothorax. No pleural effusion. MEDIASTINUM AND HILAR STRUCTURES: No masses. Contour normal. HEART AND VASCULAR STRUCTURES: Heart normal in size. Normal vasculature. BONES: No acute findings. HARDWARE: Left subclavian central line tip in the atrial caval junction. Adequate appearing endotrac heal tube. NG tube likely adequate while obscured distally. OTHER: No other significant finding. IMPRESSION: No significant interval change. TECHNICAL DOCUMENTATION: JOB ID: [id number]
--- NOTE | 2017-07-19 08:28 | PDOC PROGRESS REPORT ---
Subjective Progress Note for:: 07/19/17 Subjective:: Patient remained on the ventilator. Tachycardia improved. Hypotension improved. Patient's acidosis corrected. Patient's electrolytes with magnesium and potassium were corrected. Sodium however increased. Patient on Versed and propofol at low doses. Physical Exam Vital Signs: Temp Pulse Resp BP Pulse Ox 97.2 F 99 15 111/60 98 07/19/17 06:00 07/19/17 06:00 07/19/17 06:00 07/19/17 06:00 07/19/17 06:00 Intake & Output 07/18/17 07/19/17 07/20/17 06:59 06:59 06:59 Intake Total 1099 6836 Output Total 300 5910 165 Balance 799 926 -165 Weight 77.3 kg General appearance: PRESENT: no acute distress, other - Intubated and sedated Head exam: PRESENT: normocephalic Eye exam: PRESENT: conjunctiva pale Mouth exam: PRESENT: moist, neck supple Neck exam: ABSENT: JVD Respiratory exam: PRESENT: rhonchi - few, unlabored. ABSENT: wheezes Cardiovascular exam: PRESENT: RRR. ABSENT: gallop GI/Abdominal exam: PRESENT: normal bowel sounds, soft. ABSENT: distended Extremities exam: ABSENT: pedal edema Psychiatric exam: ABSENT: agitated Focused psych exam: ABSENT: restlessness Skin exam: PRESENT: dry, warm. ABSENT: cyanosis Results Laboratory Results: 07/19/17 05:25 07/19/17 05:25 07/18/17 07/18/17 07/18/17 09:14 12:15 14:00 WBC RBC Hgb Hct MCV MCH MCHC RDW Plt Count Carbonic Acid 1.28 HCO3/H2CO3 Ratio 14:1 ABG pH 7.25 L ABG pCO2 42.4 ABG pO2 374.2 H ABG HCO3 18.2 L ABG O2 Saturation 99.7 H ABG Base Excess -8.5 FiO2 70% Sodium Potassium Chloride Carbon Dioxide Anion Gap BUN Creatinine Est GFR ( Amer) Est GFR (Non-Af Amer) Glucose Lactic Acid 0.7 Calcium Magnesium Triglycerides Blood Type O NEGATIVE Antibody Screen NEGATIVE 07/18/17 07/18/17 07/18/17 17:15 17:15 19:15 WBC RBC Hgb Hct MCV MCH MCHC RDW Plt Count Carbonic Acid 1.09 1.12 HCO3/H2CO3 Ratio 16:1 16:1 ABG pH 7.31 L 7.32 L ABG pCO2 36.1 37.1 ABG pO2 170.1 H 135.8 H ABG HCO3 17.9 L 18.6 L ABG O2 Saturation 99.0 H 98.5 H ABG Base Excess -7.5 -6.9 FiO2 35% 30% Sodium 136.5 L Potassium 3.5 L Chloride 110 H Carbon Dioxide 18 L Anion Gap 9 BUN 8 Creatinine 0.46 L Est GFR ( Amer) > 60 Est GFR (Non-Af Amer) > 60 Glucose 196 H Lactic Acid Calcium 7.5 L Magnesium 1.5 L Triglycerides Blood Type Antibody Screen 07/19/17 07/19/17 07/19/17 05:25 05:25 05:25 WBC 10.3 RBC 3.43 L Hgb 10.0 L Hct 29.8 L MCV 87 MCH 29.1 MCHC 33.4 RDW 13.9 Plt Count 366 Carbonic Acid 1.07 HCO3/H2CO3 Ratio 18:1 ABG pH 7.37 ABG pCO2 35.4 ABG pO2 138.7 H ABG HCO3 20.1 ABG O2 Saturation 98.7 H ABG Base Excess -4.6 FiO2 30% Sodium 146.1 H Potassium 4.3 Chloride 116 H Carbon Dioxide 20 L Anion Gap 10 BUN 8 Creatinine 0.45 L Est GFR ( Amer) > 60 Est GFR (Non-Af Amer) > 60 Glucose 169 H Lactic Acid Calcium 9.0 Magnesium 2.1 Triglycerides 122 Blood Type Antibody Screen Impressions: Chest X-Ray 07/19/17 06:00 IMPRESSION: No significant interval change. Assessment & Plan - Diagnosis (1) Respiratory failure, post-operative Is this a current diagnosis for this admission?: Yes (2) Essential hypertension Is this a current diagnosis for this admission?: Yes (3) Hyperlipidemia Qualifiers: Hyperlipidemia type: unspecified Qualified Code(s): E78.5 - Hyperlipidemia , unspecified Is this a current diagnosis for this admission?: Yes (4) Type 2 diabetes mellitus Qualifiers: Diabetes mellitus complication status: with unspecified complications Diabetes mellitus senior living insulin use: unspecified rodent exterminator insulin use status Qualified Code(s): E11.8 - Type 2 diabetes mellitus with unspecified complications (5) Degenerative joint disease Qualifiers: Osteoarthritis location: unspecified site Osteoarthritis type: unspecified Qualified Code(s): M19.90 - Unspecified osteoarthritis, unspecified site Is this a current diagnosis for this admission?: Yes (6) Hypothyroidism (acquired) Is this a current diagnosis for this admission?: Yes (7) Abdominal wall abscess Is this a current diagnosis for this admission?: Yes - Time Time Spent with patient: 25-34 minutes - Plan Summary Plan Summary: We will try to wean the patient today off sedatives and eventually extubate if she tolerates weaning. In the meantime we will change intravenous fluids to half normal saline and recheck electrolytes in the morning. Continue antibiotics and hydration. Continue supportive care. Will continue to follow.
[2017-07-19] MEDS: 1/2 NORMAL SALINE 1,000 ML IV PRN ×2 (09:11→17:17)
--- NOTE | 2017-07-19 11:33 | PDOC PROGRESS REPORT ---
Subjective Progress Note for:: 07/19/17 Subjective:: Patient is intubated and sedated. Physical Exam Vital Signs: Temp Pulse Resp BP Pulse Ox 97.2 F 96 18 118/56 L 98 07/19/17 06:00 07/19/17 08:00 07/19/17 09:20 07/19/17 09:20 07/19/17 09:20 Intake & Output 07/18/17 07/19/17 07/20/17 06:59 06:59 06:59 Intake Total 1099 6836 Output Total 300 5910 225 Balance 799 926 -225 Weight 77.3 kg General appearance: PRESENT: no acute distress Respiratory exam: PRESENT: clear to auscultation tani Cardiovascular exam: PRESENT: RRR GI/Abdominal exam: PRESENT: diminished bowel sounds, soft - Dressing taken down. No drainage is noted. Repacked with Betadine soaked Kerlix. Results Laboratory Results: 07/19/17 05:25 07/19/17 05:25 07/18/17 07/18/17 07/18/17 12:15 14:00 17:15 WBC RBC Hgb Hct MCV MCH MCHC RDW Plt Count Carbonic Acid 1.28 HCO3/H2CO3 Ratio 14:1 ABG pH 7.25 L ABG pCO2 42.4 ABG pO2 374.2 H ABG HCO3 18.2 L ABG O2 Saturation 99.7 H ABG Base Excess -8.5 FiO2 70% Sodium 136.5 L Potassium 3.5 L Chloride 110 H Carbon Dioxide 18 L Anion Gap 9 BUN 8 Creatinine 0.46 L Est GFR ( Amer) > 60 Est GFR (Non-Af Amer) > 60 Glucose 196 H Lactic Acid 0.7 Calcium 7.5 L Magnesium 1.5 L Triglycerides 07/18/17 07/18/17 07/19/17 17:15 19:15 05:25 WBC RBC Hgb Hct MCV MCH MCHC RDW Plt Count Carbonic Acid 1.09 1.12 1.07 HCO3/H2CO3 Ratio 16:1 16:1 18:1 ABG pH 7.31 L 7.32 L 7.37 ABG pCO2 36.1 37.1 35.4 ABG pO2 170.1 H 135.8 H 138.7 H ABG HCO3 17.9 L 18.6 L 20.1 ABG O2 Saturation 99.0 H 98.5 H 98.7 H ABG Base Excess -7.5 -6.9 -4.6 FiO2 35% 30% 30% Sodium Potassium Chloride Carbon Dioxide Anion Gap BUN Creatinine Est GFR ( Amer) Est GFR (Non-Af Amer) Glucose Lactic Acid Calcium Magnesium Triglycerides 07/19/17 07/19/17 05:25 05:25 WBC 10.3 RBC 3.43 L Hgb 10.0 L Hct 29.8 L MCV 87 MCH 29.1 MCHC 33.4 RDW 13.9 Plt Count 366 Carbonic Acid HCO3/H2CO3 Ratio ABG pH ABG pCO2 ABG pO2 ABG HCO3 ABG O2 Saturation ABG Base Excess FiO2 Sodium 146.1 H Potassium 4.3 Chloride 116 H Carbon Dioxide 20 L Anion Gap 10 BUN 8 Creatinine 0.45 L Est GFR ( Amer) > 60 Est GFR (Non-Af Amer) > 60 Glucose 169 H Lactic Acid Calcium 9.0 Magnesium 2.1 Triglycerides 122 Impressions: Chest X-Ray 07/19/17 06:00 IMPRESSION: No significant interval change. Assessment & Plan - Plan Summary Plan Summary: Continue present therapy, weaning protocol, and supportive therapy.
--- NOTE | 2017-07-19 16:48 | PDOC CONSULTATION ---
Consultation Consult Date: 07/19/17 Attending physician:: TELLY ACEVEDO Consult reason:: resp failure History of Present Illness Admission Date/PCP: 07/17/17 22:06 History of Present Illness: WILL GALLOWAY is a 81 year old female who presented for evaluation and treatment of abdominal wall infection. Her relevant past medical surgical history significant for incarcerated abdominal wall hernia repaired by Dr. Humphries on May 10, 2017. This was a laparoscopic repair . Dr. Humphries perform drainage of the abscess reportedly involving superficial to the fascia line without intra-abdominal involvement. The patient was maintained on ventilator and was transferred to the intensive care unit.Patient currently intubated ;all information from medical records. Past Medical History Cardiac Medical History: Reports: Hyperlipidema, Hypertension Endocrine Medical History: Reports: Diabetes Mellitus Type 2, Hypothyroidism Musculoskeltal Medical History: Reports: Arthritis Psychiatric Medical History: Denies: Depression Past Surgical History Past Surgical History: Reports: Tonsillectomy - adnoids., Other - Abdominal wall hernia repair May 10, 2017 Dr. Humphries, laparoscopic with Social History Smoking Status: Never Smoker Frequency of Alcohol Use: None Hx Recreational Drug Use: No Drugs: None Hx Prescription Drug Abuse: No - Advance Directive Resuscitation Status: Full Code Family History Family History: Other - Unknown at this time unobtainable from the patient. Parental Family History Reviewed: No Children Family History Reviewed: No Sibling(s) Family History Reviewed.: No Medication/Allergy Home Medications: Potassium Chloride 20 meq PO DAILY 07/17/17 Allergies/Adverse Reactions: atropine Adverse Reaction (Verified 07/17/17 22:43) meperidine [From Demerol] Adverse Reaction (Verified 07/17/17 22:43) cold Review of Systems ROS unobtainable: Due to endotracheal tube Physical Exam Vital Signs: Temp Pulse Resp BP Pulse Ox 97.2 F 96 18 118/56 L 98 07/19/17 06:00 07/19/17 08:00 07/19/17 09:20 07/19/17 09:20 07/19/17 09:20 Intake & Output 07/18/17 07/19/17 07/20/17 06:59 06:59 06:59 Intake Total 1099 6836 Output Total 300 5910 225 Balance 799 926 -225 Weight 77.3 kg General appearance: PRESENT: no acute distress, disheveled, well-developed Head exam: PRESENT: atraumatic, normocephalic Eye exam: PRESENT: conjunctiva pale Mouth exam: PRESENT: dry mucosa, neck supple, tongue midline, other Neck exam: ABSENT: carotid bruit, JVD, lymphadenopathy, thyromegaly Respiratory exam: PRESENT: decreased breath sounds, rhonchi, symmetrical, unlabored. ABSENT: rales, wheezes Cardiovascular exam: PRESENT: RRR, +S1, +S2 Pulses: PRESENT: normal radial pulses GI/Abdominal exam: PRESENT: other - open surg wound Torso Front/Back Image: 1 - 8 cm above umbililicus to 2 cm below. open wound packed with Ag impregnated gauze Rectal exam: PRESENT: deferred Gentrourinary exam: PRESENT: indwelling catheter Musculoskeletal exam: PRESENT: normal inspection Skin exam: PRESENT: dry, warm Results Laboratory Results: 07/19/17 05:25 07/19/17 05:25 07/18/17 07/18/17 07/18/17 09:14 12:15 14:00 WBC RBC Hgb Hct MCV MCH MCHC RDW Plt Count Carbonic Acid 1.28 HCO3/H2CO3 Ratio 14:1 ABG pH 7.25 L ABG pCO2 42.4 ABG pO2 374.2 H ABG HCO3 18.2 L ABG O2 Saturation 99.7 H ABG Base Excess -8.5 FiO2 70% Sodium Potassium Chloride Carbon Dioxide Anion Gap BUN Creatinine Est GFR ( Amer) Est GFR (Non-Af Amer) Glucose Lactic Acid 0.7 Calcium Magnesium Triglycerides Blood Type O NEGATIVE Antibody Screen NEGATIVE 07/18/17 07/18/17 07/18/17 17:15 17:15 19:15 WBC RBC Hgb Hct MCV MCH MCHC RDW Plt Count Carbonic Acid 1.09 1.12 HCO3/H2CO3 Ratio 16:1 16:1 ABG pH 7.31 L 7.32 L ABG pCO2 36.1 37.1 ABG pO2 170.1 H 135.8 H ABG HCO3 17.9 L 18.6 L ABG O2 Saturation 99.0 H 98.5 H ABG Base Excess -7.5 -6.9 FiO2 35% 30% Sodium 136.5 L Potassium 3.5 L Chloride 110 H Carbon Dioxide 18 L Anion Gap 9 BUN 8 Creatinine 0.46 L Est GFR ( Amer) > 60 Est GFR (Non-Af Amer) > 60 Glucose 196 H Lactic Acid Calcium 7.5 L Magnesium 1.5 L Triglycerides Blood Type Antibody Screen 07/19/17 07/19/17 07/19/17 05:25 05:25 05:25 WBC 10.3 RBC 3.43 L Hgb 10.0 L Hct 29.8 L MCV 87 MCH 29.1 MCHC 33.4 RDW 13.9 Plt Count 366 Carbonic Acid 1.07 HCO3/H2CO3 Ratio 18:1 ABG pH 7.37 ABG pCO2 35.4 ABG pO2 138.7 H ABG HCO3 20.1 ABG O2 Saturation 98.7 H ABG Base Excess -4.6 FiO2 30% Sodium 146.1 H Potassium 4.3 Chloride 116 H Carbon Dioxide 20 L Anion Gap 10 BUN 8 Creatinine 0.45 L Est GFR ( Amer) > 60 Est GFR (Non-Af Amer) > 60 Glucose 169 H Lactic Acid Calcium 9.0 Magnesium 2.1 Triglycerides 122 Blood Type Antibody Screen Impressions: Chest X-Ray 07/19/17 06:00 IMPRESSION: No significant interval change. Assessment & Plan - Diagnosis (1) Abdominal wall abscess Is this a current diagnosis for this admission?: Yes Plan: open wound packed with iodine impregnated packing (2) Respiratory failure, post-operative Is this a current diagnosis for this admission?: Yes Plan: c/w pain from abdominal wound affect on good tidal volume - Time Critical Time spent with patient: 35 or more minutes
[2017-07-19] MEDS: PROPOFOL 100 ML IV PRN (18:36)
--- NOTE | 2017-07-19 18:50 | XCELERA REPORT ---
[address] [address] Transthoracic Echocardiogram Report Name: WILL GALLOWAY Age: 81 yrs Gender: Female : 1935 Patient Status: Inpatient Patient Location: ICU^609^A Study Date: 07/19/2017 11:28 AM Height: 63 in Weight: 170 lb BSA: 1.8 m2 Procedure: A two-dimensional transthoracic echocardiogram with color flow and Doppler was performed. Study Quality: Technically suboptimal. Images were not obtained from all of the standard acoustic windows due to the limited scope of the study. Reason For Study: hypotension, bradycardia History: hypotension, bradycardia. Ordering Physician: TIM COLEMAN Performed By: Gala Ling Interpretation Summary The left ventricle is normal in size. There is normal left ventricular wall thickness. LV EF is 65% Left ventricular systolic function is normal. Doppler measurements suggest normal left ventricular diastolic function No True 2 chamber apical views obtained.Hence cannot comment on the apical and basal anterior marcos, and the apical and basal inferior marcos.The mid anterior and the mid inferior and the rest of the marcos contract normally. There is no thrombus. The right ventricle is not well visualized secondary to technical limitations Probaly normal size, function , and no RVH. There is no evidence of mitral valve prolapse. There is no mitral valve stenosis. There is no mitral regurgitation noted. There is no aortic valve stenosis There is no LVOT obstruction. No aortic regurgitation is present. The IVC does not appear dilated but does not appear to have respiratory collapse which suggests significantly high central venous pressures There is no tricuspid stenosis. There is a mild amount of tricuspid regurgitation There is moderate pulmonary hypertension by echo RVSP is 55 mm of Hg , with RA mean of 20.( Patient on Ventilator). There is no pericardial effusion. MMode/2D Measurements & Calculations RVDd: 2.1 cm LVIDd: 5.1 cm FS: 32.5 % Ao root diam: 2.8 cm IVSd: 1.0 cm LVIDs: 3.4 cm EDV(Teich): 121.3 ml LVPWd: 1.0 cm ESV(Teich): 47.9 ml Ao root area: 6.3 cm2 EF(Teich): 60.5 % Doppler Measurements & Calculations MV E max krishna: MV dec slope: Ao V2 max: LV V1 max P.6 cm/sec 92.5 cm/sec 3.1 mmHg MV A max krishna: 351.6 cm/sec2 Ao max PG: LV V1 max: 56.2 cm/sec MV dec time: 0.20 sec3.4 mmHg 87.9 cm/sec MV E/A: 1.2 PA V2 max: TR max krishna: 61.6 cm/sec 274.4 cm/sec PA max P.5 mmHgTR max P.6 mmHg Left Ventricle The left ventricle is normal in size. There is normal left ventricular wall thickness. LV EF is 65%. Left ventricular systolic function is normal. Doppler measurements suggest normal left ventricular diastolic function. No True 2 chamber apical views obtained.Hence cannot comment on the apical and basal anterior marcos, and the apical and basal inferior marcos.The mid anterior and the mid inferior and the rest of the marcos contract normally. There is no thrombus. There is no ventricular septal defect visualized. Right Ventricle The right ventricle is not well visualized secondary to technical limitations. Probaly normal size, function , and no RVH. Mitral Valve There is no evidence of mitral valve prolapse. There is no vegetation seen on the mitral valve. There is no mitral valve stenosis. There is no mitral regurgitation noted. Aortic Valve There is no aortic valvular vegetation. There is no aortic valve stenosis. There is no LVOT obstruction. No aortic regurgitation is present. Tricuspid Valve There is no tricuspid stenosis. There is a mild amount of tricuspid regurgitation. There is moderate pulmonary hypertension by echo. RVSP is 55 mm of Hg , with RA mean of 20.( Patient on Ventilator). Great Vessels The aortic root is not well visualized but is probably normal size. The IVC does not appear dilated but does not appear to have respiratory collapse which suggests significantly high central venous pressures. Effusions There is no pericardial effusion. : TIM COLEMAN > Mary Alice Browne
[2017-07-20] MEDS: PROPOFOL 100 ML IV PRN ×2 (02:25→09:32)
[2017-07-20] MEDS: PIPERACILLIN SODIUM/TAZOBACTAM 3.375 GM in NORMAL SALINE 100 ML IV SCH ×3 (02:26→17:39)
[2017-07-20 05:29] LABS: ARTERIAL BLOOD BASE EXCESS -1.4 mmol/L
[2017-07-20 05:32] LABS: ABSOLUTE BASOPHILS # (AUTO) 0.1 10^3/uL (0.0-0.2); ABSOLUTE EOSINOPHILS # (AUTO) 0.3 10^3/uL (0.0-0.6); ABSOLUTE LYMPHOCYTES (AUTO) 1.5 10^3/uL (0.5-4.7); ABSOLUTE MONOCYTES (AUTO) 0.5 10^3/uL (0.1-1.4); ABSOLUTE NEUT (AUTO) 5.5 10^3/uL (1.7-8.2); BASOPHILS % (AUTO) 0.7 % (0-2); EOSINOPHILS % (AUTO) 3.9 % (0-6); HEMOGLOBIN 8.8 g/dL (12.0-15.5); HGB HCT DIFFERENCE 0.4; LYMPHOCYTES % (AUTO) 19.3 % (13-45); MEAN CORPUSCULAR HEMOGLOBIN 28.8 pg (27.0-33.4); MEAN CORPUSCULAR HGB CONC 33.9 g/dL (32.0-36.0); MEAN CORPUSCULAR VOLUME 85 fl (80-97); MONOCYTES % (AUTO) 5.9 % (3-13); RED BLOOD COUNT 3.06 10^6/uL (3.72-5.28); RED CELL DISTRIBUTION WIDTH 13.9 % (11.5-14.0); SEGMENTED NEUTROPHILS % (AUTO) 70.2 % (42-78); WHITE BLOOD COUNT 7.8 10^3/uL (4.0-10.5)
[2017-07-20] MEDS: 1/2 NORMAL SALINE 1,000 ML IV PRN ×2 (05:37→15:49)
[2017-07-20 05:54] LABS: ANION GAP 8 (5-19); BLOOD UREA NITROGEN 6 mg/dL (7-20); CALCIUM 8.8 mg/dL (8.4-10.2); CARBON DIOXIDE 22 mmol/L (22-30); CHLORIDE 111 mmol/L (98-107); CREATININE RESULT 0.39 mg/dL (0.52-1.25); GLUCOSE 140 mg/dL (75-110); MAGNESIUM 1.8 mg/dL (1.6-2.3); PHOSPHORUS 2.7 mg/dL (2.5-4.5); SODIUM 141.2 mmol/L (137-145)
[2017-07-20 06:08] LABS: POTASSIUM 3.1 mmol/L (3.6-5.0)
--- NOTE | 2017-07-20 07:55 | RADIOLOGY REPORT (SQ) ---
EXAM DESCRIPTION: CHEST SINGLE VIEW COMPLETED DATE/TIME: 07/20/2017 6:49 am REASON FOR STUDY: resp failure COMPARISON: 07/19/2017. EXAM PARAMETERS: NUMBER OF VIEWS: One view. TECHNIQUE: Single frontal radiographic view of the chest acquired. RADIATION DOSE: NA LIMITATIONS: None. FINDINGS: LUNGS AND PLEURA: Minimal bibasilar effusion-opacity. MEDIASTINUM AND HILAR STRUCTURES: No masses. Contour normal. HEART AND VASCULAR STRUCTURES: Heart normal in size. Normal vasculature. BONES: No acute findings. HARDWARE: Adequate appearing endotracheal tube. Likely adequate NG tube obscured distally. Left sub clavian central line tip at the right atrium ; consider 8.3 cm retraction. OTHER: No other significant finding. IMPRESSION: No significant interval change. TECHNICAL DOCUMENTATION: JOB ID: [id number]
[2017-07-20] MEDS ORDERED: NOREPINEPHRINE BITARTRATE INJ/PF 4 MG/4 ML SDV IV ONE (08:11)
--- NOTE | 2017-07-20 11:25 | PDOC PROGRESS REPORT ---
Subjective Progress Note for:: 07/20/17 Subjective:: Patient is intubated. Physical Exam Vital Signs: Temp Pulse Resp BP Pulse Ox 97.9 F 81 16 141/64 H 99 07/20/17 10:00 07/20/17 10:00 07/20/17 10:21 07/20/17 10:21 07/20/17 10:21 Intake & Output 07/19/17 07/20/17 07/21/17 06:59 06:59 06:59 Intake Total 6836 3162 Output Total 5910 2175 430 Balance 926 987 -430 Weight 77.3 kg 77.1 kg General appearance: PRESENT: no acute distress Eye exam: PRESENT: conjunctiva pink. ABSENT: scleral icterus Mouth exam: PRESENT: moist, tongue midline Neck exam: ABSENT: JVD Respiratory exam: PRESENT: clear to auscultation tani. ABSENT: rales, rhonchi, wheezes Cardiovascular exam: PRESENT: RRR. ABSENT: diastolic murmur, rubs, systolic murmur GI/Abdominal exam: PRESENT: normal bowel sounds, soft, other - Surgical dressing in place. ABSENT: distended, guarding, mass, organolmegaly, rebound, tenderness Extremities exam: ABSENT: calf tenderness, clubbing, pedal edema Neurological exam: PRESENT: other - Patient is moving all 4 extremities. Psychiatric exam: PRESENT: other - Unable to assess Skin exam: PRESENT: dry, intact, warm. ABSENT: cyanosis, rash Results Laboratory Results: 07/20/17 05:10 07/20/17 05:10 07/20/17 07/20/17 07/20/17 05:10 05:10 05:10 WBC 7.8 RBC 3.06 L Hgb 8.8 L Hct 26.0 L MCV 85 MCH 28.8 MCHC 33.9 RDW 13.9 Plt Count 317 Seg Neutrophils % 70.2 Lymphocytes % 19.3 Monocytes % 5.9 Eosinophils % 3.9 Basophils % 0.7 Absolute Neutrophils 5.5 Absolute Lymphocytes 1.5 Absolute Monocytes 0.5 Absolute Eosinophils 0.3 Absolute Basophils 0.1 Carbonic Acid 0.97 L HCO3/H2CO3 Ratio 22:1 ABG pH 7.45 ABG pCO2 32.1 L ABG pO2 142.4 H ABG HCO3 22.0 ABG O2 Saturation 99.0 H ABG Base Excess -1.4 FiO2 30% Sodium 141.2 Potassium 3.1 L D Chloride 111 H Carbon Dioxide 22 Anion Gap 8 BUN 6 L Creatinine 0.39 L Est GFR ( Amer) > 60 Est GFR (Non-Af Amer) > 60 Glucose 140 H Calcium 8.8 Phosphorus 2.7 Magnesium 1.8 Impressions: Chest X-Ray 07/20/17 06:00 IMPRESSION: No significant interval change. Assessment & Plan - Diagnosis (1) Abdominal wall abscess Is this a current diagnosis for this admission?: Yes Plan: Managed by the surgery service (2) Essential hypertension Is this a current diagnosis for this admission?: Yes Plan: Blood pressure is stable. (3) Hyperlipidemia Qualifiers: Hyperlipidemia type: unspecified Qualified Code(s): E78.5 - Hyperlipidemia , unspecified Is this a current diagnosis for this admission?: Yes (4) Hypothyroidism (acquired) Is this a current diagnosis for this admission?: Yes (5) Respiratory failure, post-operative Is this a current diagnosis for this admission?: Yes Plan: Patient is being followed by pulmonary medicine. (6) Type 2 diabetes mellitus Qualifiers: Diabetes mellitus complication status: with unspecified complications Diabetes mellitus long term care social worker insulin use: unspecified long term care social worker insulin use status Qualified Code(s): E11.8 - Type 2 diabetes mellitus with unspecified complications Is this a current diagnosis for this admission?: Yes Plan: Continue with sliding scale insulin. - Time Time Spent with patient: 25-34 minutes - Inpatient Certification Medical Necessity: Need Close Monitoring Due to Risk of Patient Decompensation
--- NOTE | 2017-07-20 12:31 | PDOC PROGRESS REPORT ---
Subjective Progress Note for:: 07/20/17 Subjective:: intubated responsive Physical Exam Vital Signs: Temp Pulse Resp BP Pulse Ox 97.9 F 81 16 141/64 H 99 07/20/17 10:00 07/20/17 10:00 07/20/17 10:21 07/20/17 10:21 07/20/17 10:21 Intake & Output 07/19/17 07/20/17 07/21/17 06:59 06:59 06:59 Intake Total 6836 3162 Output Total 5920 2175 430 Balance 926 987 -430 Weight 77.3 kg 77.1 kg General appearance: PRESENT: no acute distress, disheveled, thin, well-developed Head exam: PRESENT: atraumatic, normocephalic Eye exam: PRESENT: conjunctiva pale, EOMI Mouth exam: PRESENT: dry mucosa, neck supple, tongue midline, other - ET tube Neck exam: ABSENT: carotid bruit, JVD, lymphadenopathy, thyromegaly Respiratory exam: PRESENT: decreased breath sounds, prolonged expiratory phas, rhonchi, symmetrical, unlabored Cardiovascular exam: PRESENT: RRR, +S1, +S2 Pulses: PRESENT: normal radial pulses GI/Abdominal exam: PRESENT: diminished bowel sounds, other - midline wound w/ wound vac Rectal exam: PRESENT: deferred Gentrourinary exam: PRESENT: indwelling catheter Musculoskeletal exam: PRESENT: normal inspection Neurological exam: PRESENT: awake Skin exam: PRESENT: dry, warm Results Laboratory Results: 07/20/17 05:10 07/20/17 05:10 07/20/17 07/20/17 07/20/17 05:10 05:10 05:10 WBC 7.8 RBC 3.06 L Hgb 8.8 L Hct 26.0 L MCV 85 MCH 28.8 MCHC 33.9 RDW 13.9 Plt Count 317 Seg Neutrophils % 70.2 Lymphocytes % 19.3 Monocytes % 5.9 Eosinophils % 3.9 Basophils % 0.7 Absolute Neutrophils 5.5 Absolute Lymphocytes 1.5 Absolute Monocytes 0.5 Absolute Eosinophils 0.3 Absolute Basophils 0.1 Carbonic Acid 0.97 L HCO3/H2CO3 Ratio 22:1 ABG pH 7.45 ABG pCO2 32.1 L ABG pO2 142.4 H ABG HCO3 22.0 ABG O2 Saturation 99.0 H ABG Base Excess -1.4 FiO2 30% Sodium 141.2 Potassium 3.1 L D Chloride 111 H Carbon Dioxide 22 Anion Gap 8 BUN 6 L Creatinine 0.39 L Est GFR ( Amer) > 60 Est GFR (Non-Af Amer) > 60 Glucose 140 H Calcium 8.8 Phosphorus 2.7 Magnesium 1.8 Impressions: Chest X-Ray 07/20/17 06:00 IMPRESSION: No significant interval change. Assessment & Plan - Diagnosis (1) Abdominal wall abscess Is this a current diagnosis for this admission?: Yes Plan: wound vac applied (2) Respiratory failure, post-operative Is this a current diagnosis for this admission?: Yes Plan: extubate - Time Critical Time spent with patient: 35 or more minutes - 55 min extubation
--- NOTE | 2017-07-20 14:09 | PDOC PROGRESS REPORT ---
Subjective Progress Note for:: 07/20/17 Physical Exam Vital Signs: Temp Pulse Resp BP Pulse Ox 97.3 F 84 17 138/54 H 97 07/20/17 12:28 07/20/17 12:28 07/20/17 12:28 07/20/17 12:28 07/20/17 12:28 Intake & Output 07/19/17 07/20/17 07/21/17 06:59 06:59 06:59 Intake Total 6836 3162 Output Total 5910 2175 520 Balance 926 987 -520 Weight 77.3 kg 77.1 kg General appearance: PRESENT: no acute distress Respiratory exam: PRESENT: clear to auscultation tani Cardiovascular exam: PRESENT: RRR GI/Abdominal exam: PRESENT: normal bowel sounds, soft. ABSENT: guarding, tenderness Results Laboratory Results: 07/20/17 05:10 07/20/17 05:10 07/20/17 07/20/17 07/20/17 05:10 05:10 05:10 WBC 7.8 RBC 3.06 L Hgb 8.8 L Hct 26.0 L MCV 85 MCH 28.8 MCHC 33.9 RDW 13.9 Plt Count 317 Seg Neutrophils % 70.2 Lymphocytes % 19.3 Monocytes % 5.9 Eosinophils % 3.9 Basophils % 0.7 Absolute Neutrophils 5.5 Absolute Lymphocytes 1.5 Absolute Monocytes 0.5 Absolute Eosinophils 0.3 Absolute Basophils 0.1 Carbonic Acid 0.97 L HCO3/H2CO3 Ratio 22:1 ABG pH 7.45 ABG pCO2 32.1 L ABG pO2 142.4 H ABG HCO3 22.0 ABG O2 Saturation 99.0 H ABG Base Excess -1.4 FiO2 30% Sodium 141.2 Potassium 3.1 L D Chloride 111 H Carbon Dioxide 22 Anion Gap 8 BUN 6 L Creatinine 0.39 L Est GFR ( Amer) > 60 Est GFR (Non-Af Amer) > 60 Glucose 140 H Calcium 8.8 Phosphorus 2.7 Magnesium 1.8 Impressions: Chest X-Ray 07/20/17 06:00 IMPRESSION: No significant interval change. Assessment & Plan - Plan Summary Plan Summary: Patient is doing quite well, and will be extubated today.Wound VAC to be applied with Acticoat placed at the base of the wound.Patient will be transferred out of the ICU, possibly later today or tomorrow.
[2017-07-21] MEDS: 1/2 NORMAL SALINE 1,000 ML IV PRN (00:14)
[2017-07-21] MEDS: PIPERACILLIN SODIUM/TAZOBACTAM 3.375 GM in NORMAL SALINE 100 ML IV SCH ×3 (01:13→17:29)
[2017-07-21 05:24] LABS: ABSOLUTE BASOPHILS # (AUTO) 0.1 10^3/uL (0.0-0.2); ABSOLUTE EOSINOPHILS # (AUTO) 0.4 10^3/uL (0.0-0.6); ABSOLUTE LYMPHOCYTES (AUTO) 1.7 10^3/uL (0.5-4.7); ABSOLUTE MONOCYTES (AUTO) 0.5 10^3/uL (0.1-1.4); ABSOLUTE NEUT (AUTO) 6.6 10^3/uL (1.7-8.2); BASOPHILS % (AUTO) 0.6 % (0-2); HEMATOCRIT 30.9 % (36.0-47.0); HEMOGLOBIN 10.4 g/dL (12.0-15.5); HGB HCT DIFFERENCE 0.3; LYMPHOCYTES % (AUTO) 18.1 % (13-45); MEAN CORPUSCULAR HEMOGLOBIN 28.7 pg (27.0-33.4); MEAN CORPUSCULAR HGB CONC 33.5 g/dL (32.0-36.0); MEAN CORPUSCULAR VOLUME 86 fl (80-97); MONOCYTES % (AUTO) 5.5 % (3-13); RED BLOOD COUNT 3.61 10^6/uL (3.72-5.28); RED CELL DISTRIBUTION WIDTH 13.6 % (11.5-14.0); SEGMENTED NEUTROPHILS % (AUTO) 71.8 % (42-78); WHITE BLOOD COUNT 9.2 10^3/uL (4.0-10.5)
[2017-07-21 05:47] LABS: ANION GAP 13 (5-19); BLOOD UREA NITROGEN 4 mg/dL (7-20); CALCIUM 8.7 mg/dL (8.4-10.2); CARBON DIOXIDE 23 mmol/L (22-30); CHLORIDE 105 mmol/L (98-107); CREATININE RESULT 0.41 mg/dL (0.52-1.25); GLUCOSE 118 mg/dL (75-110); POTASSIUM 3.3 mmol/L (3.6-5.0); SODIUM 141.2 mmol/L (137-145)
[2017-07-21] MEDS: POTASSI CL 20 MEQ/50 ML RIDER 20 MEQ/50 ML RTUPB IV SCH ×2 (09:02→10:10)
--- NOTE | 2017-07-21 09:54 | PDOC PROGRESS REPORT ---
Subjective Progress Note for:: 07/21/17 Subjective:: 24 hrs s/p extubation;awake.alert,responsive Physical Exam Vital Signs: Temp Pulse Resp BP Pulse Ox 97.9 F 84 16 141/72 H 99 07/21/17 07:59 07/21/17 07:59 07/21/17 07:59 07/21/17 07:59 07/21/17 08:12 Intake & Output 07/20/17 07/21/17 07/22/17 06:59 06:59 06:59 Intake Total 3162 2650 Output Total 2175 2090 580 Balance 987 560 -580 Weight 77.1 kg 76.2 kg General appearance: PRESENT: no acute distress, cooperative, disheveled, well- developed Head exam: PRESENT: atraumatic, normocephalic Eye exam: PRESENT: conjunctiva pale, EOMI Mouth exam: PRESENT: moist, neck supple, tongue midline Neck exam: ABSENT: carotid bruit, JVD, lymphadenopathy, thyromegaly Respiratory exam: PRESENT: prolonged expiratory phas, rhonchi, unlabored. ABSENT: accessory muscle use, chest wall tenderness, stridor, wheezes Cardiovascular exam: PRESENT: RRR, +S1, +S2. ABSENT: bradycardia, tachycardia Pulses: PRESENT: normal radial pulses GI/Abdominal exam: PRESENT: other - midline surgical wound with wound -vac Rectal exam: PRESENT: deferred Gentrourinary exam: PRESENT: indwelling catheter Musculoskeletal exam: PRESENT: normal inspection Neurological exam: PRESENT: alert, awake Psychiatric exam: PRESENT: normal mood Skin exam: PRESENT: dry, warm Results Laboratory Results: 07/21/17 05:05 07/21/17 05:05 07/21/17 07/21/17 05:05 05:05 WBC 9.2 RBC 3.61 L Hgb 10.4 L Hct 30.9 L MCV 86 MCH 28.7 MCHC 33.5 RDW 13.6 Plt Count 369 Seg Neutrophils % 71.8 Lymphocytes % 18.1 Monocytes % 5.5 Eosinophils % 4.0 Basophils % 0.6 Absolute Neutrophils 6.6 Absolute Lymphocytes 1.7 Absolute Monocytes 0.5 Absolute Eosinophils 0.4 Absolute Basophils 0.1 Sodium 141.2 Potassium 3.3 L Chloride 105 Carbon Dioxide 23 Anion Gap 13 BUN 4 L Creatinine 0.41 L Est GFR ( Amer) > 60 Est GFR (Non-Af Amer) > 60 Glucose 118 H Calcium 8.7 Impressions: Chest X-Ray 07/20/17 06:00 IMPRESSION: No significant interval change. Assessment & Plan - Diagnosis (1) Abdominal wall abscess Is this a current diagnosis for this admission?: Yes Plan: wound vac per surgery (2) Respiratory failure, post-operative Is this a current diagnosis for this admission?: No - Time Critical Time spent with patient: 25-34 minutes
--- NOTE | 2017-07-21 10:29 | PDOC PROGRESS REPORT ---
Subjective Progress Note for:: 07/21/17 Subjective:: Patient was extubated yesterday and is doing well with no complaints. Physical Exam Vital Signs: Temp Pulse Resp BP Pulse Ox 97.9 F 79 22 H 141/72 H 98 07/21/17 07:59 07/21/17 08:22 07/21/17 08:00 07/21/17 08:22 07/21/17 08:22 Intake & Output 07/20/17 07/21/17 07/22/17 06:59 06:59 06:59 Intake Total 3162 2650 Output Total 2175 2090 580 Balance 987 560 -580 Weight 77.1 kg 76.2 kg General appearance: PRESENT: no acute distress Eye exam: PRESENT: conjunctiva pink. ABSENT: scleral icterus Mouth exam: PRESENT: moist, tongue midline Neck exam: ABSENT: JVD Respiratory exam: PRESENT: clear to auscultation tani. ABSENT: rales, rhonchi, wheezes Cardiovascular exam: PRESENT: RRR. ABSENT: diastolic murmur, rubs, systolic murmur GI/Abdominal exam: PRESENT: normal bowel sounds, soft, other - Wound VAC in place in the midline.. ABSENT: distended, guarding, mass, organolmegaly, rebound, tenderness Extremities exam: ABSENT: calf tenderness, clubbing, pedal edema Neurological exam: PRESENT: alert, awake, oriented to person, oriented to place , oriented to time, oriented to situation, CN II-XII grossly intact. ABSENT: motor sensory deficit Psychiatric exam: PRESENT: appropriate affect Skin exam: PRESENT: other - Wound VAC in place in the abdomen and midline. Results Laboratory Results: 07/21/17 05:05 07/21/17 05:05 07/21/17 07/21/17 05:05 05:05 WBC 9.2 RBC 3.61 L Hgb 10.4 L Hct 30.9 L MCV 86 MCH 28.7 MCHC 33.5 RDW 13.6 Plt Count 369 Seg Neutrophils % 71.8 Lymphocytes % 18.1 Monocytes % 5.5 Eosinophils % 4.0 Basophils % 0.6 Absolute Neutrophils 6.6 Absolute Lymphocytes 1.7 Absolute Monocytes 0.5 Absolute Eosinophils 0.4 Absolute Basophils 0.1 Sodium 141.2 Potassium 3.3 L Chloride 105 Carbon Dioxide 23 Anion Gap 13 BUN 4 L Creatinine 0.41 L Est GFR ( Amer) > 60 Est GFR (Non-Af Amer) > 60 Glucose 118 H Calcium 8.7 Impressions: Chest X-Ray 07/20/17 06:00 IMPRESSION: No significant interval change. Assessment & Plan - Diagnosis (1) Abdominal wall abscess Is this a current diagnosis for this admission?: Yes Plan: Managed by the surgery service (2) Essential hypertension Is this a current diagnosis for this admission?: Yes Plan: Blood pressure is stable. (3) Hyperlipidemia Qualifiers: Hyperlipidemia type: unspecified Qualified Code(s): E78.5 - Hyperlipidemia , unspecified Is this a current diagnosis for this admission?: Yes (4) Hypothyroidism (acquired) Is this a current diagnosis for this admission?: Yes (5) Respiratory failure, post-operative Is this a current diagnosis for this admission?: No Plan: Patient is being followed by pulmonary medicine. (6) Type 2 diabetes mellitus Qualifiers: Diabetes mellitus complication status: with unspecified complications Diabetes mellitus intermission coordinator insulin use: unspecified prison insulin use status Qualified Code(s): E11.8 - Type 2 diabetes mellitus with unspecified complications Is this a current diagnosis for this admission?: Yes Plan: Continue with sliding scale insulin. - Time Time Spent with patient: 25-34 minutes - Inpatient Certification Medical Necessity: Need Close Monitoring Due to Risk of Patient Decompensation
--- NOTE | 2017-07-21 12:42 | PDOC PROGRESS REPORT ---
Subjective Progress Note for:: 07/21/17 Subjective:: Pt. was extubated yesterday and is doing very well. Physical Exam Vital Signs: Temp Pulse Resp BP Pulse Ox 98.1 F 78 17 146/80 H 99 07/21/17 10:00 07/21/17 10:00 07/21/17 10:00 07/21/17 10:00 07/21/17 10:00 Intake & Output 07/20/17 07/21/17 07/22/17 06:59 06:59 06:59 Intake Total 3162 2650 Output Total 2175 2090 1060 Balance 987 560 -1060 Weight 77.1 kg 76.2 kg General appearance: PRESENT: no acute distress Neck exam: PRESENT: full ROM Respiratory exam: PRESENT: clear to auscultation tani Cardiovascular exam: PRESENT: RRR GI/Abdominal exam: PRESENT: normal bowel sounds, soft. ABSENT: guarding, tenderness Results Laboratory Results: 07/21/17 05:05 07/21/17 05:05 07/21/17 07/21/17 05:05 05:05 WBC 9.2 RBC 3.61 L Hgb 10.4 L Hct 30.9 L MCV 86 MCH 28.7 MCHC 33.5 RDW 13.6 Plt Count 369 Seg Neutrophils % 71.8 Lymphocytes % 18.1 Monocytes % 5.5 Eosinophils % 4.0 Basophils % 0.6 Absolute Neutrophils 6.6 Absolute Lymphocytes 1.7 Absolute Monocytes 0.5 Absolute Eosinophils 0.4 Absolute Basophils 0.1 Sodium 141.2 Potassium 3.3 L Chloride 105 Carbon Dioxide 23 Anion Gap 13 BUN 4 L Creatinine 0.41 L Est GFR ( Amer) > 60 Est GFR (Non-Af Amer) > 60 Glucose 118 H Calcium 8.7 Impressions: Chest X-Ray 07/20/17 06:00 IMPRESSION: No significant interval change. Assessment & Plan - Plan Summary Plan Summary: Pt is to be transferred to surgical floor. Is doing very well.
[2017-07-22] MEDS: 1/2 NORMAL SALINE 1,000 ML IV PRN (01:00)
[2017-07-22] MEDS: PIPERACILLIN SODIUM/TAZOBACTAM 3.375 GM in NORMAL SALINE 100 ML IV SCH ×3 (01:00→17:19)
[2017-07-22 05:59] LABS: ABSOLUTE EOSINOPHILS # (AUTO) 0.3 10^3/uL (0.0-0.6); ABSOLUTE LYMPHOCYTES (AUTO) 1.5 10^3/uL (0.5-4.7); ABSOLUTE MONOCYTES (AUTO) 0.5 10^3/uL (0.1-1.4); ABSOLUTE NEUT (AUTO) 5.9 10^3/uL (1.7-8.2); BASOPHILS % (AUTO) 0.6 % (0-2); EOSINOPHILS % (AUTO) 3.9 % (0-6); HEMATOCRIT 27.7 % (36.0-47.0); HEMOGLOBIN 9.2 g/dL (12.0-15.5); HGB HCT DIFFERENCE -0.1; MEAN CORPUSCULAR HEMOGLOBIN 28.4 pg (27.0-33.4); MEAN CORPUSCULAR HGB CONC 33.1 g/dL (32.0-36.0); MEAN CORPUSCULAR VOLUME 86 fl (80-97); MONOCYTES % (AUTO) 5.7 % (3-13); RED BLOOD COUNT 3.23 10^6/uL (3.72-5.28); RED CELL DISTRIBUTION WIDTH 13.9 % (11.5-14.0); SEGMENTED NEUTROPHILS % (AUTO) 71.8 % (42-78); WHITE BLOOD COUNT 8.3 10^3/uL (4.0-10.5)
[2017-07-22 06:02] LABS: ANION GAP 12 (5-19); BLOOD UREA NITROGEN 3 mg/dL (7-20); CALCIUM 8.3 mg/dL (8.4-10.2); CARBON DIOXIDE 22 mmol/L (22-30); CHLORIDE 107 mmol/L (98-107); CREATININE RESULT 0.43 mg/dL (0.52-1.25); GLUCOSE 112 mg/dL (75-110); MAGNESIUM 1.7 mg/dL (1.6-2.3); SODIUM 141.2 mmol/L (137-145)
--- NOTE | 2017-07-22 09:39 | PDOC PROGRESS REPORT ---
Subjective Progress Note for:: 07/22/17 Subjective:: ;awake.alert,responsive,Anxious to go home Physical Exam Vital Signs: Temp Pulse Resp BP Pulse Ox 97.2 F 65 18 146/61 H 93 07/22/17 08:03 07/22/17 08:03 07/22/17 08:03 07/22/17 08:03 07/22/17 08:03 Intake & Output 07/21/17 07/22/17 07/23/17 06:59 06:59 06:59 Intake Total 2650 3000 Output Total 2090 1235 Balance 560 1765 Weight 76.2 kg 80.9 kg General appearance: PRESENT: no acute distress, cooperative, disheveled, obese Head exam: PRESENT: atraumatic, normocephalic Eye exam: PRESENT: conjunctiva pale, EOMI Mouth exam: PRESENT: moist, neck supple, tongue midline Neck exam: ABSENT: carotid bruit, JVD, lymphadenopathy, thyromegaly Respiratory exam: PRESENT: decreased breath sounds, prolonged expiratory phas, rhonchi, symmetrical, unlabored. ABSENT: accessory muscle use, chest wall tenderness, crackles, rales, retraction, stridor, tachypnea, wheezes Cardiovascular exam: PRESENT: RRR, +S1, +S2. ABSENT: bradycardia, irregular rhythm, rubs, tachycardia Pulses: PRESENT: normal radial pulses GI/Abdominal exam: PRESENT: diminished bowel sounds, soft, other - Midline small surgical wound with wound VAC attended Rectal exam: PRESENT: deferred Gentrourinary exam: PRESENT: indwelling catheter Musculoskeletal exam: PRESENT: normal inspection Neurological exam: PRESENT: alert, awake Psychiatric exam: PRESENT: normal mood Results Laboratory Results: 07/22/17 04:45 07/22/17 04:45 07/22/17 07/22/17 04:45 04:45 WBC 8.3 RBC 3.23 L Hgb 9.2 L Hct 27.7 L MCV 86 MCH 28.4 MCHC 33.1 RDW 13.9 Plt Count 312 Seg Neutrophils % 71.8 Lymphocytes % 18.0 Monocytes % 5.7 Eosinophils % 3.9 Basophils % 0.6 Absolute Neutrophils 5.9 Absolute Lymphocytes 1.5 Absolute Monocytes 0.5 Absolute Eosinophils 0.3 Absolute Basophils 0.0 Sodium 141.2 Potassium 3.0 L* Chloride 107 Carbon Dioxide 22 Anion Gap 12 BUN 3 L Creatinine 0.43 L Est GFR ( Amer) > 60 Est GFR (Non-Af Amer) > 60 Glucose 112 H Calcium 8.3 L Magnesium 1.7 Impressions: Chest X-Ray 07/20/17 06:00 IMPRESSION: No significant interval change. Assessment & Plan - Diagnosis (1) Abdominal wall abscess Is this a current diagnosis for this admission?: Yes Plan: wound vac per surgery, patient appears stable and without distress (2) Respiratory failure, post-operative Is this a current diagnosis for this admission?: No
[2017-07-22] MEDS: POTASSIUM CHLORIDE 10 MEQ TABLET.SA PO SCH (09:52)
[2017-07-22] MEDS: POTASSIUM CHLORIDE 20 MEQ/50 ML RTU IV SCH ×3 (09:52→14:20)
--- NOTE | 2017-07-22 10:18 | PDOC PROGRESS REPORT ---
Subjective Progress Note for:: 07/22/17 Subjective:: Denies any complaints Physical Exam Vital Signs: Temp Pulse Resp BP Pulse Ox 97.2 F 65 18 146/61 H 93 07/22/17 08:03 07/22/17 08:03 07/22/17 08:03 07/22/17 08:03 07/22/17 08:03 Intake & Output 07/21/17 07/22/17 07/23/17 06:59 06:59 06:59 Intake Total 2650 3000 Output Total 2090 1235 Balance 560 1765 Weight 76.2 kg 80.9 kg General appearance: PRESENT: no acute distress Eye exam: PRESENT: conjunctiva pink. ABSENT: scleral icterus Mouth exam: PRESENT: moist, tongue midline Neck exam: ABSENT: JVD Respiratory exam: PRESENT: clear to auscultation tani. ABSENT: rales, rhonchi, wheezes Cardiovascular exam: PRESENT: RRR. ABSENT: diastolic murmur, rubs, systolic murmur GI/Abdominal exam: PRESENT: normal bowel sounds, soft, other - Wound VAC in place in the midline. ABSENT: distended, guarding, mass, organolmegaly, rebound , tenderness Extremities exam: ABSENT: calf tenderness, clubbing, pedal edema Neurological exam: PRESENT: alert, awake, oriented to person, oriented to place , oriented to time, oriented to situation, CN II-XII grossly intact. ABSENT: motor sensory deficit Psychiatric exam: PRESENT: appropriate affect Skin exam: PRESENT: other - Wound VAC in place in the abdomen in the midline Results Laboratory Results: 07/22/17 04:45 07/22/17 04:45 07/22/17 07/22/17 04:45 04:45 WBC 8.3 RBC 3.23 L Hgb 9.2 L Hct 27.7 L MCV 86 MCH 28.4 MCHC 33.1 RDW 13.9 Plt Count 312 Seg Neutrophils % 71.8 Lymphocytes % 18.0 Monocytes % 5.7 Eosinophils % 3.9 Basophils % 0.6 Absolute Neutrophils 5.9 Absolute Lymphocytes 1.5 Absolute Monocytes 0.5 Absolute Eosinophils 0.3 Absolute Basophils 0.0 Sodium 141.2 Potassium 3.0 L* Chloride 107 Carbon Dioxide 22 Anion Gap 12 BUN 3 L Creatinine 0.43 L Est GFR ( Amer) > 60 Est GFR (Non-Af Amer) > 60 Glucose 112 H Calcium 8.3 L Magnesium 1.7 Impressions: Chest X-Ray 07/20/17 06:00 IMPRESSION: No significant interval change. Assessment & Plan - Diagnosis (1) Abdominal wall abscess Is this a current diagnosis for this admission?: Yes Plan: Managed by the surgery service (2) Essential hypertension Is this a current diagnosis for this admission?: Yes Plan: Blood pressure is stable. (3) Hyperlipidemia Qualifiers: Hyperlipidemia type: unspecified Qualified Code(s): E78.5 - Hyperlipidemia , unspecified Is this a current diagnosis for this admission?: Yes (4) Hypothyroidism (acquired) Is this a current diagnosis for this admission?: Yes (5) Respiratory failure, post-operative Is this a current diagnosis for this admission?: No Plan: Resolved. Patient is being followed by pulmonary medicine. (6) Type 2 diabetes mellitus Qualifiers: Diabetes mellitus complication status: with unspecified complications Diabetes mellitus cullet crusher insulin use: unspecified half-way insulin use status Qualified Code(s): E11.8 - Type 2 diabetes mellitus with unspecified complications Is this a current diagnosis for this admission?: Yes Plan: Continue with sliding scale insulin. - Time Time Spent with patient: 25-34 minutes - Inpatient Certification Medical Necessity: Need for IV Antibiotics
--- NOTE | 2017-07-22 14:55 | PDOC PROGRESS REPORT ---
Subjective Progress Note for:: 07/22/17 Subjective:: Patient is getting out of bed for the fourth time today, and wants the Jordan out. Physical Exam Vital Signs: Temp Pulse Resp BP Pulse Ox 97.2 F 75 18 142/60 H 98 07/22/17 08:03 07/22/17 11:43 07/22/17 11:43 07/22/17 11:43 07/22/17 11:43 Intake & Output 07/21/17 07/22/17 07/23/17 06:59 06:59 06:59 Intake Total 2650 3000 Output Total 2090 1235 Balance 560 1765 Weight 76.2 kg 80.9 kg General appearance: PRESENT: no acute distress Respiratory exam: PRESENT: clear to auscultation tani GI/Abdominal exam: PRESENT: normal bowel sounds, soft - Wound VAC is in place. Results Laboratory Results: 07/22/17 04:45 07/22/17 04:45 07/22/17 07/22/17 04:45 04:45 WBC 8.3 RBC 3.23 L Hgb 9.2 L Hct 27.7 L MCV 86 MCH 28.4 MCHC 33.1 RDW 13.9 Plt Count 312 Seg Neutrophils % 71.8 Lymphocytes % 18.0 Monocytes % 5.7 Eosinophils % 3.9 Basophils % 0.6 Absolute Neutrophils 5.9 Absolute Lymphocytes 1.5 Absolute Monocytes 0.5 Absolute Eosinophils 0.3 Absolute Basophils 0.0 Sodium 141.2 Potassium 3.0 L* Chloride 107 Carbon Dioxide 22 Anion Gap 12 BUN 3 L Creatinine 0.43 L Est GFR ( Amer) > 60 Est GFR (Non-Af Amer) > 60 Glucose 112 H Calcium 8.3 L Magnesium 1.7 Impressions: Chest X-Ray 07/20/17 06:00 IMPRESSION: No significant interval change. Assessment & Plan - Diagnosis (1) Abdominal wall abscess Is this a current diagnosis for this admission?: Yes - Plan Summary Plan Summary: Will DC Jordan, taper IV fluids, and discharge planning for a.m.
[2017-07-23] MEDS: PIPERACILLIN SODIUM/TAZOBACTAM 3.375 GM in NORMAL SALINE 100 ML IV SCH ×3 (03:05→17:12)
[2017-07-23 06:40] LABS: ANION GAP 10 (5-19); BLOOD UREA NITROGEN 2 mg/dL (7-20); CALCIUM 8.4 mg/dL (8.4-10.2); CARBON DIOXIDE 20 mmol/L (22-30); CHLORIDE 110 mmol/L (98-107); CREATININE RESULT 0.39 mg/dL (0.52-1.25); GLUCOSE 143 mg/dL (75-110); POTASSIUM 3.1 mmol/L (3.6-5.0); SODIUM 140.3 mmol/L (137-145)
--- NOTE | 2017-07-23 10:13 | PDOC PROGRESS REPORT ---
Subjective Progress Note for:: 07/23/17 Subjective:: Denies any complaints Physical Exam Vital Signs: Temp Pulse Resp BP Pulse Ox 97.5 F 76 18 137/63 H 100 07/23/17 07:18 07/23/17 07:18 07/23/17 07:18 07/23/17 07:18 07/23/17 07:18 Intake & Output 07/22/17 07/23/17 07/24/17 06:59 06:59 06:59 Intake Total 3000 3612 Output Total 1235 1150 Balance 1765 2462 Weight 80.9 kg 80.2 kg General appearance: PRESENT: no acute distress Eye exam: PRESENT: conjunctiva pink. ABSENT: scleral icterus Mouth exam: PRESENT: moist, tongue midline Neck exam: ABSENT: JVD Respiratory exam: PRESENT: clear to auscultation tani. ABSENT: rales, rhonchi, wheezes Cardiovascular exam: PRESENT: RRR. ABSENT: diastolic murmur, rubs, systolic murmur GI/Abdominal exam: PRESENT: normal bowel sounds, soft, other - Dressing in place.. ABSENT: distended, guarding, mass, organolmegaly, rebound, tenderness Extremities exam: ABSENT: calf tenderness, clubbing, pedal edema Neurological exam: PRESENT: alert, awake, oriented to person, oriented to place , oriented to time, oriented to situation, CN II-XII grossly intact. ABSENT: motor sensory deficit Psychiatric exam: PRESENT: appropriate affect Results Laboratory Results: 07/22/17 04:45 07/23/17 05:50 07/23/17 05:50 Sodium 140.3 Potassium 3.1 L Chloride 110 H Carbon Dioxide 20 L Anion Gap 10 BUN 2 L Creatinine 0.39 L Est GFR ( Amer) > 60 Est GFR (Non-Af Amer) > 60 Glucose 143 H Calcium 8.4 Impressions: Chest X-Ray 07/20/17 06:00 IMPRESSION: No significant interval change. Assessment & Plan - Diagnosis (1) Abdominal wall abscess Is this a current diagnosis for this admission?: Yes Plan: Managed by the surgery service (2) Essential hypertension Is this a current diagnosis for this admission?: Yes Plan: Blood pressure is stable. (3) Hyperlipidemia Qualifiers: Hyperlipidemia type: unspecified Qualified Code(s): E78.5 - Hyperlipidemia , unspecified Is this a current diagnosis for this admission?: Yes (4) Hypothyroidism (acquired) Is this a current diagnosis for this admission?: Yes (5) Respiratory failure, post-operative Is this a current diagnosis for this admission?: No Plan: Resolved. Patient is being followed by pulmonary medicine. (6) Type 2 diabetes mellitus Qualifiers: Diabetes mellitus complication status: with unspecified complications Diabetes mellitus custodial insulin use: unspecified terminal clerk insulin use status Qualified Code(s): E11.8 - Type 2 diabetes mellitus with unspecified complications Is this a current diagnosis for this admission?: Yes Plan: Continue with sliding scale insulin. (7) Hypokalemia Is this a current diagnosis for this admission?: Yes Plan: We will give IV potassium today. - Time Time Spent with patient: 15-24 minutes - Plan Summary Plan Summary: Patient is stable for discharge from the medicine service standpoint.
[2017-07-23] MEDS: POTASSIUM CHLORIDE 10 MEQ TABLET.SA PO SCH (10:21)
[2017-07-23] MEDS: POTASSI CL 20 MEQ/50 ML RIDER 20 MEQ/50 ML RTUPB IV SCH ×2 (10:27→12:39)
--- NOTE | 2017-07-23 21:47 | PROGRESS NOTE E ---
Progress Note NAME: WILL GALLOWAY : 1935 AGE: 81Y DATE: ROOM: 431 SUBJECTIVE: The patient is complaining of some mild pains around the VAC site. The vacuum was changed by the nurse and reported that the wound looks good. New VAC was placed. The area around the VAC is slightly erythematous and mildly tender. OBJECTIVE: She remains afebrile. LABORATORY: Her labs showed a white count on 07/21/2017 was normal and yesterday potassium was 3.1 after about 3 K-riders. She is still getting a couple more of K-riders today. Her glucose is just slightly elevated at 143 yesterday. PLAN: Continue on IV antibiotics and wound VAC. Discharge planning nurse is consulted and will make arrangements for possible continued wound VAC at home on Wednesday on 07/26/2017. DICTATING PHYSICIAN: CHINMAY DUMAS M.D. [id number] PHY#: [id number] ID: [id number] JOB#: [id number] ACCT: [id number] cc: >
[2017-07-24] MEDS: PIPERACILLIN SODIUM/TAZOBACTAM 3.375 GM in NORMAL SALINE 100 ML IV SCH ×3 (02:13→17:44)
[2017-07-24] MEDS: 1/2 NORMAL SALINE 1,000 ML IV PRN (02:14)
[2017-07-24 05:58] LABS: ABSOLUTE BASOPHILS # (AUTO) 0.1 10^3/uL (0.0-0.2); ABSOLUTE EOSINOPHILS # (AUTO) 0.5 10^3/uL (0.0-0.6); ABSOLUTE LYMPHOCYTES (AUTO) 1.8 10^3/uL (0.5-4.7); ABSOLUTE MONOCYTES (AUTO) 0.5 10^3/uL (0.1-1.4); ABSOLUTE NEUT (AUTO) 6.2 10^3/uL (1.7-8.2); BASOPHILS % (AUTO) 0.8 % (0-2); EOSINOPHILS % (AUTO) 5.6 % (0-6); HEMATOCRIT 28.2 % (36.0-47.0); HEMOGLOBIN 9.3 g/dL (12.0-15.5); HGB HCT DIFFERENCE -0.3; LYMPHOCYTES % (AUTO) 19.9 % (13-45); MEAN CORPUSCULAR HEMOGLOBIN 28.4 pg (27.0-33.4); MEAN CORPUSCULAR VOLUME 86 fl (80-97); MONOCYTES % (AUTO) 5.8 % (3-13); RED BLOOD COUNT 3.27 10^6/uL (3.72-5.28); RED CELL DISTRIBUTION WIDTH 14.4 % (11.5-14.0); SEGMENTED NEUTROPHILS % (AUTO) 67.9 % (42-78); WHITE BLOOD COUNT 9.1 10^3/uL (4.0-10.5)
[2017-07-24 06:11] LABS: POTASSIUM 3.4 mmol/L (3.6-5.0); SODIUM 139.3 mmol/L (137-145)
[2017-07-24] MEDS ORDERED: POTASSI CL 20 MEQ/50 ML RIDER 20 MEQ/50 ML RTUPB IV ONE (09:00)
--- NOTE | 2017-07-24 10:29 | PDOC PROGRESS REPORT ---
Subjective Progress Note for:: 07/24/17 Subjective:: Denies any complaints Physical Exam Vital Signs: Temp Pulse Resp BP Pulse Ox 97.6 F 76 17 152/71 H 96 07/24/17 07:47 07/24/17 07:47 07/24/17 07:47 07/24/17 07:47 07/24/17 07:47 Intake & Output 07/23/17 07/24/17 07/25/17 06:59 06:59 06:59 Intake Total 3612 4858 Output Total 1150 1525 Balance 2462 3333 Weight 80.2 kg 82.2 kg General appearance: PRESENT: no acute distress Eye exam: PRESENT: conjunctiva pink. ABSENT: scleral icterus Mouth exam: PRESENT: moist, tongue midline Neck exam: ABSENT: JVD Respiratory exam: PRESENT: clear to auscultation tani. ABSENT: rales, rhonchi, wheezes Cardiovascular exam: PRESENT: RRR. ABSENT: diastolic murmur, rubs, systolic murmur GI/Abdominal exam: PRESENT: normal bowel sounds, soft, other - Dressing in place on the abdomen.. ABSENT: distended, guarding, mass, organolmegaly, rebound, tenderness Extremities exam: ABSENT: calf tenderness, clubbing, pedal edema Neurological exam: PRESENT: alert, awake, oriented to person, oriented to place , oriented to time, oriented to situation, CN II-XII grossly intact. ABSENT: motor sensory deficit Psychiatric exam: PRESENT: appropriate affect Skin exam: PRESENT: dry, intact, warm. ABSENT: cyanosis, rash Results Laboratory Results: 07/24/17 05:30 07/24/17 05:30 07/24/17 07/24/17 05:30 05:30 WBC 9.1 RBC 3.27 L Hgb 9.3 L Hct 28.2 L MCV 86 MCH 28.4 MCHC 33.0 RDW 14.4 H Plt Count 326 Seg Neutrophils % 67.9 Lymphocytes % 19.9 Monocytes % 5.8 Eosinophils % 5.6 Basophils % 0.8 Absolute Neutrophils 6.2 Absolute Lymphocytes 1.8 Absolute Monocytes 0.5 Absolute Eosinophils 0.5 Absolute Basophils 0.1 Sodium 139.3 Potassium 3.4 L Chloride 109 H Carbon Dioxide 21 L Anion Gap 9 07/18/17 09:59 Abdomen - Abscess Gram Stain - Final Impressions: Chest X-Ray 07/20/17 06:00 IMPRESSION: No significant interval change. Assessment & Plan - Diagnosis (1) Abdominal wall abscess Is this a current diagnosis for this admission?: Yes Plan: Managed by the surgery service (2) Essential hypertension Is this a current diagnosis for this admission?: Yes Plan: Blood pressure is stable. (3) Hyperlipidemia Qualifiers: Hyperlipidemia type: unspecified Qualified Code(s): E78.5 - Hyperlipidemia , unspecified Is this a current diagnosis for this admission?: Yes (4) Hypothyroidism (acquired) Is this a current diagnosis for this admission?: Yes (5) Respiratory failure, post-operative Is this a current diagnosis for this admission?: No Plan: Resolved. (6) Type 2 diabetes mellitus Qualifiers: Diabetes mellitus complication status: with unspecified complications Diabetes mellitus halfway insulin use: unspecified halfway insulin use status Qualified Code(s): E11.8 - Type 2 diabetes mellitus with unspecified complications Is this a current diagnosis for this admission?: Yes Plan: Continue with sliding scale insulin. (7) Hypokalemia Is this a current diagnosis for this admission?: Yes Plan: We will give IV potassium today. - Time Time Spent with patient: 25-34 minutes
[2017-07-24] MEDS: POTASSIUM CHLORIDE 10 MEQ TABLET.SA PO SCH (11:29)
[2017-07-24] MEDS ORDERED: VANCOMYCIN HCL 1,000 MG in DEXTROSE 5%-WATER 250 ML IV ONE ×2 (18:00→20:15)
[2017-07-24] MEDS ORDERED: VANCOMYCIN HCL INJ 1000 MG VIAL ONE (21:04)
[2017-07-24] MEDS ORDERED: VANCOMYCIN HCL 1,000 MG in DEXTROSE 5%-WATER 250 ML IV SCH (22:00)
[2017-07-25 06:07] LABS: ANION GAP 7 (5-19); CALCIUM 8.6 mg/dL (8.4-10.2); CARBON DIOXIDE 26 mmol/L (22-30); CHLORIDE 107 mmol/L (98-107); CREATININE RESULT 0.39 mg/dL (0.52-1.25); GLUCOSE 151 mg/dL (75-110); SODIUM 140.1 mmol/L (137-145)
[2017-07-25 06:09] LABS: BLOOD UREA NITROGEN < 2 mg/dL (7-20)
[2017-07-25 06:17] LABS: POTASSIUM 2.9 mmol/L (3.6-5.0)
[2017-07-25] MEDS: POTASSIUM CHLORIDE 10 MEQ TABLET.SA PO SCH ×3 (08:10→10:33)
[2017-07-25] MEDS: POTASSIUM CHLORIDE 20 MEQ/50 ML RTU IV SCH ×2 (08:14→10:34)
[2017-07-25] MEDS ORDERED: VANCOMYCIN HCL 1,000 MG in DEXTROSE 5%-WATER 250 ML IV SCH (10:00)
--- NOTE | 2017-07-25 10:02 | PDOC PROGRESS REPORT ---
Subjective Progress Note for:: 07/25/17 Subjective:: Denies any complaints Physical Exam Vital Signs: Temp Pulse Resp BP Pulse Ox 97.9 F 79 18 143/58 H 92 07/25/17 07:18 07/25/17 07:18 07/25/17 07:18 07/25/17 07:18 07/25/17 07:18 Intake & Output 07/24/17 07/25/17 07/26/17 06:59 06:59 06:59 Intake Total 4858 3797 Output Total 1525 3050 Balance 3333 747 Weight 82.2 kg 83.4 kg General appearance: PRESENT: no acute distress Eye exam: PRESENT: conjunctiva pink. ABSENT: scleral icterus Mouth exam: PRESENT: moist, tongue midline Neck exam: ABSENT: JVD Respiratory exam: PRESENT: clear to auscultation tani. ABSENT: rales, rhonchi, wheezes Cardiovascular exam: PRESENT: RRR. ABSENT: diastolic murmur, rubs, systolic murmur GI/Abdominal exam: PRESENT: normal bowel sounds, soft. ABSENT: distended, guarding, mass, organolmegaly, rebound, tenderness Extremities exam: ABSENT: calf tenderness, clubbing, pedal edema Neurological exam: PRESENT: alert, awake, oriented to person, oriented to place , oriented to time, oriented to situation, CN II-XII grossly intact. ABSENT: motor sensory deficit Psychiatric exam: PRESENT: appropriate affect Skin exam: PRESENT: dry, intact, warm, other - Dressing in place on the abdominal wound.. ABSENT: cyanosis, rash Results Laboratory Results: 07/24/17 05:30 07/25/17 05:45 07/25/17 05:45 Sodium 140.1 Potassium 2.9 L* Chloride 107 Carbon Dioxide 26 Anion Gap 7 BUN < 2 L Creatinine 0.39 L Est GFR ( Amer) > 60 Est GFR (Non-Af Amer) > 60 Glucose 151 H Calcium 8.6 07/18/17 09:59 Abdomen - Abscess Gram Stain - Final 07/18/17 09:59 Abdomen - Abscess Wound Culture - Final Klebsiella Oxytoca Escherichia Coli Streptococcus Mitis Mrsa (Meth Resis Staph Aureus) Prevotella Species Peptostreptococcus Species Impressions: Chest X-Ray 07/20/17 06:00 IMPRESSION: No significant interval change. Assessment & Plan - Diagnosis (1) Abdominal wall abscess Is this a current diagnosis for this admission?: Yes Plan: Managed by the surgery service (2) Essential hypertension Is this a current diagnosis for this admission?: Yes Plan: Blood pressure is stable. (3) Hyperlipidemia Qualifiers: Hyperlipidemia type: unspecified Qualified Code(s): E78.5 - Hyperlipidemia , unspecified Is this a current diagnosis for this admission?: Yes (4) Hypothyroidism (acquired) Is this a current diagnosis for this admission?: Yes (5) Respiratory failure, post-operative Is this a current diagnosis for this admission?: No Plan: Resolved. (6) Type 2 diabetes mellitus Qualifiers: Diabetes mellitus complication status: with unspecified complications Diabetes mellitus cosmetician apprentice insulin use: unspecified cosmetician apprentice insulin use status Qualified Code(s): E11.8 - Type 2 diabetes mellitus with unspecified complications Is this a current diagnosis for this admission?: Yes Plan: Continue with sliding scale insulin. (7) Hypokalemia Is this a current diagnosis for this admission?: Yes Plan: We will give IV potassium today. - Time Time Spent with patient: 25-34 minutes
[2017-07-25] MEDS: RINGERS SOLUTION,LACTATED 1,000 ML IV PRN ×2 (11:28→18:27)
--- NOTE | 2017-07-25 14:07 | PDOC PROGRESS REPORT ---
Subjective Progress Note for:: 07/23/17 Subjective:: ;awake.alert,responsive,w/o complaints Physical Exam Vital Signs: Temp Pulse Resp BP Pulse Ox 97.5 F 76 18 137/63 H 100 07/23/17 07:18 07/23/17 07:18 07/23/17 07:18 07/23/17 07:18 07/23/17 07:18 Intake & Output 07/22/17 07/23/17 07/24/17 06:59 06:59 06:59 Intake Total 3000 3612 Output Total 1235 1150 Balance 1765 2462 Weight 80.9 kg 80.2 kg General appearance: PRESENT: no acute distress, cooperative, disheveled, well- developed Head exam: PRESENT: atraumatic, normocephalic Eye exam: PRESENT: conjunctiva pale, EOMI. ABSENT: nystagmus, periorbital swelling, scleral icterus Mouth exam: PRESENT: moist, neck supple. ABSENT: laceration Neck exam: ABSENT: carotid bruit, JVD, lymphadenopathy, meningismus, tenderness , thyromegaly, tracheal deviation, tracheostomy Respiratory exam: PRESENT: decreased breath sounds, prolonged expiratory phas, rhonchi, symmetrical, unlabored. ABSENT: accessory muscle use, chest wall tenderness, rales, retraction, stridor, tachypnea, wheezes Cardiovascular exam: PRESENT: RRR, +S1, +S2. ABSENT: tachycardia Pulses: PRESENT: normal radial pulses GI/Abdominal exam: PRESENT: other - Surgical dressing in the midline dry Neurological exam: PRESENT: alert, awake Psychiatric exam: PRESENT: normal mood Skin exam: PRESENT: warm Results Laboratory Results: 07/22/17 04:45 07/23/17 05:50 07/23/17 05:50 Sodium 140.3 Potassium 3.1 L Chloride 110 H Carbon Dioxide 20 L Anion Gap 10 BUN 2 L Creatinine 0.39 L Est GFR ( Amer) > 60 Est GFR (Non-Af Amer) > 60 Glucose 143 H Calcium 8.4 Impressions: Chest X-Ray 07/20/17 06:00 IMPRESSION: No significant interval change. Assessment & Plan - Diagnosis (1) Abdominal wall abscess Is this a current diagnosis for this admission?: Yes Plan: wound vac per surgery, patient without distress (2) Respiratory failure, post-operative Is this a current diagnosis for this admission?: No
--- NOTE | 2017-07-25 17:57 | PROGRESS NOTE E ---
Progress Note NAME: WILL GALLOWAY : 1935 AGE: 81Y DATE: 07/25/2017 ROOM: 431 SUBJECTIVE: I was called by the lab telling me that patient had positive for MRSA. I changed the IV antibiotics to vancomycin, which is more specific for MRSA. This was started last night. This morning, patient has loose stool. Specimen was sent for C. diff. She claims her abdominal pains have somewhat subsided. OBJECTIVE: The abdomen is soft and nontender. The erythema around the VAC area has subsided. PLAN: Continue with IV antibiotics for the next 48 to 72 hours and then continue the VAC at home and [facility] DICTATING PHYSICIAN: CHINMAY DUMAS M.D. [id number] TARAH#: [id number] ID: [id number] JOB#: [id number] ACCT: [id number] cc: >
[2017-07-25] MEDS ORDERED: VANCOMYCIN HCL 1,250 MG in DEXTROSE 5%-WATER 250 ML IV SCH (20:00)
[2017-07-26 06:12] LABS: ANION GAP 7 (5-19); CARBON DIOXIDE 28 mmol/L (22-30); CHLORIDE 106 mmol/L (98-107); CREATININE RESULT 0.41 mg/dL (0.52-1.25); GLUCOSE 156 mg/dL (75-110); SODIUM 141.4 mmol/L (137-145)
[2017-07-26 06:14] LABS: BLOOD UREA NITROGEN < 2 mg/dL (7-20)
[2017-07-26 06:19] LABS: POTASSIUM 3.3 mmol/L (3.6-5.0)
[2017-07-26] MEDS: POTASSIUM CHLORIDE 10 MEQ TABLET.SA PO SCH ×2 (09:59→21:34)
--- NOTE | 2017-07-26 10:34 | PDOC PROGRESS REPORT ---
Subjective Progress Note for:: 07/26/17 Subjective:: Feels great. Physical Exam Vital Signs: Temp Pulse Resp BP Pulse Ox 97.9 F 99 24 H 131/68 H 96 07/26/17 07:53 07/26/17 07:53 07/26/17 07:53 07/26/17 07:53 07/26/17 07:53 Intake & Output 07/25/17 07/26/17 07/27/17 06:59 06:59 06:59 Intake Total 3797 4135 Output Total 3050 2500 Balance 747 1635 Weight 83.4 kg 83.4 kg General appearance: PRESENT: no acute distress GI/Abdominal exam: PRESENT: other - VAC in place; no peritoneal signs; no cellulitis Results Laboratory Results: 07/24/17 05:30 07/26/17 05:20 07/25/17 07/26/17 16:25 05:20 Sodium 141.4 Potassium 4.3 D 3.3 L D Chloride 106 Carbon Dioxide 28 Anion Gap 7 BUN < 2 L Creatinine 0.41 L Est GFR ( Amer) > 60 Est GFR (Non-Af Amer) > 60 Glucose 156 H Calcium 9.0 Impressions: Chest X-Ray 07/20/17 06:00 IMPRESSION: No significant interval change. Assessment & Plan - Diagnosis (1) Abdominal wall abscess Is this a current diagnosis for this admission?: Yes Plan: Doing well 1 week following hospitalization, abdominal wall debridement, dressing changes now wound VAC. Polymicrobial infection under control with no evidence of residual sepsis. Plan: 1. I discussed management with hospitalist service. We will discontinue intravenous antibiotics and central line 2. We will start Bactrim p.o. twice daily 3. Anticipate discharge home in the next 24 hours with wound VAC as today is a holiday and we cannot orchestrate the home health plan. (2) Ventral hernia Qualifiers: Obstruction and gangrene presence: without obstruction or gangrene Qualified Code(s): K43.9 - Ventral hernia without obstruction or gangrene Is this a current diagnosis for this admission?: No (3) Hyponatremia Is this a current diagnosis for this admission?: Yes
--- NOTE | 2017-07-26 11:18 | PDOC PROGRESS REPORT ---
Subjective Progress Note for:: 07/26/17 Subjective:: Denies any complaints Physical Exam Vital Signs: Temp Pulse Resp BP Pulse Ox 97.9 F 99 24 H 131/68 H 96 07/26/17 07:53 07/26/17 07:53 07/26/17 07:53 07/26/17 07:53 07/26/17 07:53 Intake & Output 07/25/17 07/26/17 07/27/17 06:59 06:59 06:59 Intake Total 3797 4135 Output Total 3050 2500 Balance 747 1635 Weight 83.4 kg 83.4 kg General appearance: PRESENT: no acute distress Eye exam: PRESENT: conjunctiva pink. ABSENT: scleral icterus Mouth exam: PRESENT: moist, tongue midline Neck exam: ABSENT: JVD Respiratory exam: PRESENT: clear to auscultation tani. ABSENT: rales, rhonchi, wheezes Cardiovascular exam: PRESENT: RRR. ABSENT: diastolic murmur, rubs, systolic murmur GI/Abdominal exam: PRESENT: normal bowel sounds, soft, other - wound VAC in place in the midline. ABSENT: distended, guarding, mass, organolmegaly, rebound , tenderness Neurological exam: PRESENT: alert, awake, oriented to person, oriented to place , oriented to time, oriented to situation, CN II-XII grossly intact. ABSENT: motor sensory deficit Psychiatric exam: PRESENT: appropriate affect Skin exam: PRESENT: dry, intact, warm, other - Wound VAC in place in the abdomen and midline.. ABSENT: cyanosis, rash Results Laboratory Results: 07/24/17 05:30 07/26/17 05:20 07/25/17 07/26/17 16:25 05:20 Sodium 141.4 Potassium 4.3 D 3.3 L D Chloride 106 Carbon Dioxide 28 Anion Gap 7 BUN < 2 L Creatinine 0.41 L Est GFR ( Amer) > 60 Est GFR (Non-Af Amer) > 60 Glucose 156 H Calcium 9.0 Impressions: Chest X-Ray 07/20/17 06:00 IMPRESSION: No significant interval change. Assessment & Plan - Diagnosis (1) Abdominal wall abscess Is this a current diagnosis for this admission?: Yes Plan: Managed by the surgery service. Patient is growing multiple organisms. I think it would be appropriate to treat this patient with Bactrim DS 2 tablets twice daily given the multiple organisms growing from culture. (2) Essential hypertension Is this a current diagnosis for this admission?: Yes Plan: Blood pressure is stable. (3) Hyperlipidemia Qualifiers: Hyperlipidemia type: unspecified Qualified Code(s): E78.5 - Hyperlipidemia , unspecified Is this a current diagnosis for this admission?: Yes (4) Hypothyroidism (acquired) Is this a current diagnosis for this admission?: Yes (5) Respiratory failure, post-operative Is this a current diagnosis for this admission?: No Plan: Resolved. (6) Type 2 diabetes mellitus Qualifiers: Diabetes mellitus complication status: with unspecified complications Diabetes mellitus chcf insulin use: unspecified chcf insulin use status Qualified Code(s): E11.8 - Type 2 diabetes mellitus with unspecified complications Is this a current diagnosis for this admission?: Yes Plan: Continue with sliding scale insulin. (7) Hypokalemia Is this a current diagnosis for this admission?: Yes Plan: We will increase the oral potassium today. - Time Time Spent with patient: 25-34 minutes - Plan Summary Plan Summary: Hospitalist service will sign off. If you have any further questions please feel free to contact us. Thank you for this consult.
[2017-07-26] MEDS ORDERED: SULFAMETHOXAZOLE/TRIMETHOPRIM 800-160 MG TABLET PO SCH (18:00)
--- NOTE | 2017-07-27 09:53 | DISCHARGE SUMMARY E ---
Discharge Summary NAME: WILL GALLOWAY : 1935 AGE: 81Y ADMITTED: 07/17/2017 DISCHARGED: FINAL DIAGNOSIS: Infected abdominal wound post laparoscopic abdominal wall hernia repair with Covidien mesh done by Dr. Humphries on May 10, 2017. PROCEDURE DONE: On 07/18/17, operative wound debridement and packing. On 07/20/17, patient extubated and wound VAC applied. FINAL DIAGNOSES: 1. Abdominal wound infection. 2. Diabetes mellitus type 2. 3. Hypertension. 4. Hyperlipidemia. 5. Hypokalemia. 6. Hypothyroidism. HOSPITAL COURSE: This is an 81-year-old female who underwent repair of incarcerated abdominal hernia with Covidien mesh under laparoscopic technique done by Dr. Humphries on May 10, 2017. However, patient did not show up in the Surgical Clinic but being followed at the [facility]. On the day of admission, patient presented to the emergency room with abdominal pain where a CAT scan of the abdomen revealed abdominal wall infection. Patient had gas in the abdominal wall. Patient was then taken to the OR the next day on July 18 where a wound debridement and packing was done by Dr. Humphries. Patient was kept in the intensive care unit since she was intubated. On 07/20/17, she was extubated and a wound VAC applied over the abdominal wound. She was continued on IV antibiotics. She gradually improved. She practically remained afebrile. I was called on 07/24/17 by Microbiology indicating there is presence of MRSA on the culture. Since then, patient has been on IV vancomycin. In the meantime the abdominal wound continued to improve. Wound VAC was changed on 07/24/17 and there was good granulation tissue as noted by her nurse. In the meantime the erythema around the wound VAC has subsided. Her white count remained essentially normal since before and after subsequent days of surgery. Her hemoglobin on discharge was 9.3 with a white count of 9.1. This was on 07/24/17. She will be discharged with a wound VAC and to be followed in the Surgical Clinic with Dr. Humphries in about 1-2 weeks. Patient tolerating regular diet and advised not to do any lifting more than 12 pounds for the next week. Patient on p.o. Bactrim twice a day for the next 10 days. DICTATING PHYSICIAN: CHINMAY DUMAS M.D. [id number] PHY#: [id number] ID: [id number] JOB#: [id number] ACCT: [id number] cc:MERNA HUMPHRIES M.D., FAUSTINO M.D. >
[2017-07-27] MEDS: POTASSIUM CHLORIDE 10 MEQ TABLET.SA PO SCH (10:08)
--- NOTE | 2017-07-27 10:44 | PDOC PROGRESS REPORT ---
Subjective Progress Note for:: 07/27/17 Subjective:: w/o complaints Physical Exam Vital Signs: Temp Pulse Resp BP Pulse Ox 97.9 F 95 16 128/72 H 94 07/27/17 08:19 07/27/17 08:19 07/27/17 08:19 07/27/17 08:19 07/27/17 08:19 Intake & Output 07/26/17 07/27/17 07/28/17 06:59 06:59 06:59 Intake Total 4135 100 Output Total 2500 Balance 1635 100 Weight 83.4 kg 83.2 kg General appearance: PRESENT: no acute distress, cooperative, disheveled, obese Head exam: PRESENT: atraumatic, normocephalic Eye exam: PRESENT: conjunctiva pale, EOMI Mouth exam: PRESENT: moist, neck supple, tongue midline Neck exam: ABSENT: carotid bruit, JVD, lymphadenopathy, thyromegaly Respiratory exam: PRESENT: decreased breath sounds, prolonged expiratory phas, rhonchi, symmetrical, unlabored Cardiovascular exam: PRESENT: RRR, +S1, +S2 Pulses: PRESENT: normal radial pulses GI/Abdominal exam: PRESENT: normal bowel sounds, soft. ABSENT: distended, guarding, mass, organolmegaly, rebound, tenderness Rectal exam: PRESENT: deferred Musculoskeletal exam: PRESENT: normal inspection Neurological exam: PRESENT: awake Psychiatric exam: PRESENT: normal mood Skin exam: PRESENT: dry, warm Results Laboratory Results: 07/24/17 05:30 07/26/17 05:20 Impressions: Chest X-Ray 07/20/17 06:00 IMPRESSION: No significant interval change. Assessment & Plan - Diagnosis (1) Abdominal wall abscess Is this a current diagnosis for this admission?: Yes Plan: wound vac per surgery, patient without distress (2) Respiratory failure, post-operative Is this a current diagnosis for this admission?: No
[2017-07-27 15:59] VITALS: BP 145/71
== END 2017-07-27 17:25 | disposition home health service (06) | DRG 856 ==
LOC: ER 21:23 → UNDOADMIN 21:58 → EH 21:58 → 5 23:55 → ICU 07-18 10:50 → 4S 07-21 16:50
PROVIDERS: ADMIT Surgery; ATTEND Surgery
PROC: 02HV33Z Insertion of Infusion Device into Superior Vena Cava, Percutaneous Approach (ICD-10-PCS; 2017-07-18)
PROC: 5A1945Z Respiratory Ventilation, 24-96 Consecutive Hours (ICD-10-PCS; 2017-07-18)
PROC: 0BH17EZ Insertion of Endotracheal Airway into Trachea, Via Natural or Artificial Opening (ICD-10-PCS; 2017-07-18)
PROC: 0JB80ZZ Excision of Abdomen Subcutaneous Tissue and Fascia, Open Approach (ICD-10-PCS; principal; 2017-07-18 09:00)
PROC: 2W13X6Z Compression of Abdominal Wall using Pressure Dressing (ICD-10-PCS; 2017-07-20)
DX: T81.4XXA Infection following a procedure, initial encounter (principal); J96.00 Acute respiratory failure, unspecified whether with hypoxia or hypercapnia; L02.211 Cutaneous abscess of abdominal wall; E87.1 Hypo-osmolality and hyponatremia; B95.62 Methicillin resistant Staphylococcus aureus infection as the cause of diseases classified elsewhere; E87.6 Hypokalemia; E11.9 Type 2 diabetes mellitus without complications; I10 Essential (primary) hypertension; E78.5 Hyperlipidemia, unspecified; E03.9 Hypothyroidism, unspecified; M19.90 Unspecified osteoarthritis, unspecified site; Z79.899 Other long term (current) drug therapy; Z88.8 Allergy status to other drugs, medicaments and biological substances
CPT/HCPCS: 00700; 36415; 51702; 71010; 80048; 80051; 82803; 82962; 83605; 83735; 84100; 84132; 84478; 85025; 85027; 85610; 85730; 86850; 86900; 86901; 87070; 87075; 87077; 87186; 87205; 87493; 93005; 93010; 93306; 94002; 94003; 99285; C1751; G8978-GP; G8979-GP; J0330; J1265; J1815; J2250; J2270; J2543; J2704; J3010; J3370; J3475; J3480; J3490; J7030; J7060; J7120

== ENCOUNTER 2017-08-16 15:12 | Emergency (ER) | payer MEDICARE, OTHER ==
[2017-08-16] MEDS ORDERED: NORMAL SALINE 500 ML IV PRN (15:37)
[2017-08-16 16:30] LABS: ABSOLUTE MONOCYTES (AUTO) 0.8 10^3/uL (0.1-1.4); ABSOLUTE NEUT (AUTO) 11.2 10^3/uL (1.7-8.2); BASOPHILS % (AUTO) 0.3 % (0-2); EOSINOPHILS % (AUTO) 0.1 % (0-6); HEMATOCRIT 31.5 % (36.0-47.0); HEMOGLOBIN 10.5 g/dL (12.0-15.5); LYMPHOCYTES % (AUTO) 7.5 % (13-45); MEAN CORPUSCULAR HEMOGLOBIN 28.3 pg (27.0-33.4); MEAN CORPUSCULAR HGB CONC 33.2 g/dL (32.0-36.0); MEAN CORPUSCULAR VOLUME 85 fl (80-97); MONOCYTES % (AUTO) 6.3 % (3-13); RED BLOOD COUNT 3.69 10^6/uL (3.72-5.28); RED CELL DISTRIBUTION WIDTH 17.5 % (11.5-14.0); SEGMENTED NEUTROPHILS % (AUTO) 85.8 % (42-78)
[2017-08-16 16:37] LABS: APPEARANCE,URINE CLEAR; BILIRUBIN,URINE NEGATIVE (NEGATIVE); GLUCOSE, URINE 150 mg/dL (NEGATIVE); KETONES,URINE 80 mg/dL (NEGATIVE); LEUKOCYTE ESTERASE,URINE NEGATIVE (NEGATIVE); NITRITE,URINE NEGATIVE (NEGATIVE); PROTEIN,URINE 30 mg/dL (NEGATIVE); URINE SPECIFIC GRAVITY 1.023
--- NOTE | 2017-08-16 16:44 | RADIOLOGY REPORT (SQ) ---
EXAM DESCRIPTION: CHEST SINGLE VIEW/ portable COMPLETED DATE/TIME: 08/16/2017 4:26 pm REASON FOR STUDY: chest pain COMPARISON: 07/20/2017 EXAM PARAMETERS: NUMBER OF VIEWS: One view. TECHNIQUE: Single frontal radiographic view of the chest acquired. RADIATION DOSE: NA LIMITATIONS: None. FINDINGS: LUNGS AND PLEURA: No opacities, masses or pneumothorax. No pleural effusion. MEDIASTINUM AND HILAR STRUCTURES: No masses. Contour normal. HEART AND VASCULAR STRUCTURES: Heart normal in size. Normal vasculature. BONES: No acute findings. HARDWARE: None. Nasogastric tube and endotracheal tube have been removed. OTHER: No other significant finding. IMPRESSION: NO ACUTE RADIOGRAPHIC FINDING IN THE CHEST. TECHNICAL DOCUMENTATION: JOB ID: [id number]
[2017-08-16 16:51] LABS: ALANINE AMINOTRANSFERASE 23 U/L (9-52); ALBUMIN 2.8 g/dL (3.5-5.0); ALKALINE PHOSPHATASE 87 U/L (38-126); ANION GAP 13 (5-19); ASPARTATE AMINO TRANSFERASE 28 U/L (14-36); BILIRUBIN,DIRECT 0.5 mg/dL (0.0-0.4); BILIRUBIN,TOTAL 1.2 mg/dL (0.2-1.3); BLOOD UREA NITROGEN 8 mg/dL (7-20); CALCIUM 9.1 mg/dL (8.4-10.2); CARBON DIOXIDE 23 mmol/L (22-30); CHLORIDE 98 mmol/L (98-107); CREATININE RESULT 0.47 mg/dL (0.52-1.25); GLUCOSE 167 mg/dL (75-110); POTASSIUM 3.3 mmol/L (3.6-5.0); SODIUM 133.5 mmol/L (137-145); TOTAL PROTEIN 6.3 g/dL (6.3-8.2)
[2017-08-16] MEDS ORDERED: POTASSIUM CHLORIDE 10 MEQ TABLET.SA PO ONE (17:59)
[2017-08-16 18:30] LABS: CREATINE KINASE MB 0.57 ng/mL (<4.55); TROPONIN I 0.066 ng/mL
--- NOTE | 2017-08-16 18:57 | ER Document Report ---
ED General - General Chief Complaint: Weakness Stated Complaint: WEAKNESS Time Seen by Provider: 08/16/17 15:36 Mode of Arrival: Medic Information source: Patient, Relative Notes: This is an 82-year-old female with a history of type 2 diabetes, hypothyroidism and a chronic abdominal wound. Patient had a laparotomy for an SBO in the springtime and ultimately had wound dehiscence with infection. Patient has home health and they have had a wound VAC up until recently when it was taken off because it was clogged. Patient had presented with weakness and decreased appetite and increased fatigue. Patient denies any fevers, chills, abdominal pain, chest pain or shortness of breath. TRAVEL OUTSIDE OF THE [place] IN LAST 30 DAYS: No - HPI Onset: Last week Onset/Duration: Gradual Quality of pain: No pain Severity: None Pain Level: Denies Associated symptoms: denies: Chest pain, Fever, Nausea, Vomiting, Shortness of breath Exacerbated by: Denies Relieved by: Denies Similar symptoms previously: No Recently seen / treated by doctor: Yes - Related Data Allergies/Adverse Reactions: atropine Adverse Reaction (Verified 07/17/17 22:43) meperidine [From Demerol] Adverse Reaction (Verified 07/17/17 22:43) cold Past Medical History - General Information source: Patient - Social History Smoking Status: Former Smoker Cigarette use (# per day): No Chew tobacco use (# tins/day): No Frequency of alcohol use: None Drug Abuse: None Lives with: Family Family History: None, Other - Unknown at this time unobtainable from the patient. Patient has suicidal ideation: No Patient has homicidal ideation: No - Past Medical History Cardiac Medical History: Reports: Hx Hypercholesterolemia, Hx Hypertension Endocrine Medical History: Reports: Hx Diabetes Mellitus Type 2, Hx Hypothyroidism Renal/ Medical History: Denies: Hx Peritoneal Dialysis Musculoskeltal Medical History: Reports Hx Arthritis Psychiatric Medical History: Denies: Hx Depression Past Surgical History: Reports: Hx Abdominal Surgery - hernia repair, Hx Tonsillectomy - adnoids., Other - Abdominal wall hernia repair May 10, 2017 Dr. Humphries, laparoscopic with - Immunizations Hx Diphtheria, Pertussis, Tetanus Vaccination: No Review of Systems - Review of Systems Constitutional: denies: Chills, Fever EENT: No symptoms reported Cardiovascular: No symptoms reported Respiratory: No symptoms reported Gastrointestinal: See HPI Genitourinary: No symptoms reported Female Genitourinary: No symptoms reported Musculoskeletal: No symptoms reported Skin: See HPI Hematologic/Lymphatic: No symptoms reported Neurological/Psychological: Weakness Physical Exam - Vital signs Vitals: Temp Pulse Resp BP Pulse Ox 98.0 F 90 18 118/66 97 08/16/17 15:14 08/16/17 15:14 08/16/17 15:14 08/16/17 15:14 08/16/17 15:14 Notes: Physical exam: GENERAL: 82-year-old female, alert and oriented 3, no acute distress HEAD: Atraumatic, normocephalic. EYES: Pupils equal round and reactive to light, extraocular movements intact, sclera anicteric, conjunctiva are normal. ENT: TMs normal, nares patent, oropharynx clear without exudates. Moist mucous membranes. NECK: Normal range of motion, supple without obvious mass or JVD. LUNGS: Breath sounds clear to auscultation bilaterally and equal. No wheezes rales or rhonchi. HEART: Regular rate and rhythm without murmurs, rubs or gallops. ABDOMEN: Soft, normoactive bowel sounds. No tenderness to palpation. No guarding, no rebound. No masses appreciated. patient does have wound dehiscence midline below the umbilicus. There is no foul smell or purulence. There is no surrounding erythema. EXTREMITIES: Normal range of motion, no pitting or edema. No clubbing or cyanosis. NEUROLOGICAL: Cranial nerves II through XII grossly intact. Normal speech, moving all extremities. PSYCH: Normal mood, normal affect. SKIN: Warm, Dry, normal turgor, no rashes or lesions noted. Course - Re-evaluation Re-evalutation: 08/16/17 18:55 Patient was given some IV fluids and observed in the ER. Discussed case with Dr. Ruiz who came down to observe the wound. The wound actually looks quite good and is granulating. There is no evidence of infection. I packed the wound with wet-to-dry dressings. The plan will be to discontinue the wound VAC and continue with daily wet-to-dry dressings. The patient does have home health care, she does have an appointment with the pre sales technical consultant, she is encouraged to follow-up at the wound care clinic here and her son states he had contacted the clinic today. - Vital Signs Vital signs: Temp Pulse Resp BP Pulse Ox 98.0 F 90 18 118/66 97 08/16/17 15:14 08/16/17 15:14 08/16/17 15:14 08/16/17 15:14 08/16/17 15:14 - Laboratory Result Diagrams: 08/16/17 16:03 08/16/17 16:03 Laboratory results interpreted by me: 08/16/17 08/16/17 08/16/17 06:03 16:03 16:03 WBC 13.0 H RBC 3.69 L Hgb 10.5 L Hct 31.5 L RDW 17.5 H Seg Neutrophils % 85.8 H Lymphocytes % 7.5 L Absolute Neutrophils 11.2 H Sodium 133.5 L Potassium 3.3 L Creatinine 0.47 L Glucose 167 H Direct Bilirubin 0.5 H Creatine Kinase < 20 L Albumin 2.8 L Urine Protein Urine Glucose (UA) Urine Ketones Urine Urobilinogen 08/16/17 16:21 WBC RBC Hgb Hct RDW Seg Neutrophils % Lymphocytes % Absolute Neutrophils Sodium Potassium Creatinine Glucose Direct Bilirubin Creatine Kinase Albumin Urine Protein 30 H Urine Glucose (UA) 150 H Urine Ketones 80 H Urine Urobilinogen 2.0 H - Diagnostic Test Radiology reviewed: Image reviewed, Reports reviewed - Chest x-ray shows no infiltrates or effusions Discharge - Discharge Clinical Impression: Weakness, Healing abdominal wound Condition: Stable Disposition: HOME, SELF-CARE Additional Instructions: Thank you for choosing [facility] for your care. The examination and treatment you have received in the Emergency Department today has been rendered on an emergency basis only and is not intended to be a substitute for complete medical care. You should contact your follow-up physician as it is important that he or she examine you for any new or remaining problems. If given a copy of any lab tests or radiology reports, please bring them with you when you see your physician. If your problem worsens or new symptoms appear and you are unable to arrange prompt follow-up care, return to the Emergency Department. Specific signs to look out for: Fever (temperature greater than 100.5), abdominal pain, pus coming from the wound, any concerns at the wound is getting worse, not able to tolerate food or fluids. Any other instructions: It is okay to discontinue the wound VAC at this time. Tell the home health nurse: Daily wet to dry dressings. Call the Call the wound clinic for follow-up appointment. Follow-up with your primary care doctor as planned.
--- NOTE | 2017-08-16 19:42 | CONSULTATION REPORT E ---
Consultation Report NAME: WILL GALLOWAY : 1935 AGE: 82Y DATE: 08/16/2017 TO: MERNA HUMPHRIES M.D. FROM: GRECIA SHAH M.D. Requesting Physician CHIEF COMPLAINT: Abdominal wound. REPORT OF CONSULTATION: The patient is an 82-year-old white female, well known to ar, approximately 3 months status post a laparoscopic ventral herniorrhaphy, reduction of small bowel obstruction, complicated by wound infection presenting approximately 2 months later at [facility]. The patient underwent a second operation approximately [address] Humphries involving abdominal wall debridement, and wound packing. The patient was discharged home several weeks ago with abdominal-wall VAC therapy. The patient has had some failure to thrive symptoms and now presents to the emergency department having removed her wound VAC, complaining of poor appetite, and listlessness. Past medical/surgical history and review of systems can all be found in her permanent medical record. The patient is seen in the emergency department. She is in no acute distress. PHYSICAL EXAMINATION: VITAL SIGNS: Stable. She is afebrile. GENERAL: She is awake, alert, and oriented x4. PSYCHIATRIC: She is intact and answers all questions appropriately. SKIN: Turgor is normal. LUNGS: Diminished in the bases bilaterally. HEART: Without murmur or gallop. ABDOMEN: The abdomen is examined. Midline wound is examined. It is an elliptical shaped cavity, approximately 6 cm long 3.5 cm wide and actually 4 to 5 cm deep with chronic granulating surface. There is no foul smell or drainage. Surrounding skin is completely intact. Subcutaneous tissue is somewhat woody. The remainder of the examination is unremarkable. DIAGNOSTIC DATA: Laboratory profile shows a white blood cell count of 13,000, hemoglobin at 10.5. Electrolytes show potassium at 3.3. BUN and creatinine of 8 and 0.47. IMPRESSION: 1. Chronic abdominal wound, closing by secondary to intention status post abdominal wall debridement 1 month ago. 2. Mild leukocytosis. 3. Hypokalemia. 4. Obesity. RECOMMENDATIONS: 1. Agree with discontinuing VAC therapy and switching patient over to wet-to-dry dressings. 2. The patient can follow up with the [facility] in 1 to 2 weeks for a wound check. 3. The patient may require an appetite stimulant or antinausea medication as needed. I have discussed the above with Dr. Shah. DICTATING PHYSICIAN: MERNA HUMPHRIES M.D. [id number] PHY#: [id number] ID: [id number] JOB#: [id number] ACCT: [id number] cc:MERNA HUMPHRIES M.D. >
[2017-08-16 20:18] VITALS: BP 118/61
== END 2017-08-16 19:56 | disposition home or self-care (01) ==
LOC: ER 15:12
DX: T81.89XA Other complications of procedures, not elsewhere classified, initial encounter (principal); R53.1 Weakness; E11.9 Type 2 diabetes mellitus without complications; E03.9 Hypothyroidism, unspecified; Z98.890 Other specified postprocedural states; R63.0 Anorexia; R53.83 Other fatigue; Z87.891 Personal history of nicotine dependence; X58.XXXA Exposure to other specified factors, initial encounter
CPT/HCPCS: 99285; 96360; 96361; 51701; 36415; 82553; 82550; 85025; 80053; 81001; 84484; 71010; J7040; A9270

== ENCOUNTER → 2017-08-26 | Outpatient (CLI) | payer MEDICARE, OTHER ==
--- NOTE | 2017-08-26 16:49 | RADIOLOGY REPORT (SQ) ---
EXAM DESCRIPTION: CT ABDOMEN IV CONTRAST ONLY COMPLETED DATE/TIME: 08/26/2017 3:58 pm REASON FOR STUDY: CUTANEOUS ABSCESS OF ABDOMINAL WALL L02.211 CUTANEOUS ABSCESS OF ABDOMINAL WALL COMPARISON: 05/10/2017 TECHNIQUE: CT scan of the abdomen performed with intravenous and without oral contrast using helical scanning technique with dynamic intravenous contrast injection. Images reviewed with lung, soft tiss ue, and bone windows. Reconstructed coronal and sagittal MPR images reviewed. Delayed images for eval uation of the urinary system also acquired and evaluated. All images stored on PACS. All CT scanners at this facility use dose modulation, iterative reconstruc tion, and/or weight based dosing when appropriate to reduce radiation dose to as low as reasonably ac hievable (ALARA). [facility]: Dose Right [facility]: CareDose [facility]: Dose Right [facility]: Teradose 4D [facility]: [employer] CONTRAST TYPE AND DOSE: contrast/concentration: Isovue 370.00 mg/ml; Total Contrast Delivered: 69.0 ml; Total Saline Delivered: 65.0 ml RENAL FUNCTION: BUN 8 creatinine 0.5 RADIATION DOSE: Up-to-date CT equipment and radiation dose reduction techniques were employed. CTDIv ol: 8.8 - 10.0 mGy. DLP: 506 mGy-cm. . LIMITATIONS: None. FINDINGS: LOWER CHEST: No significant findings. No nodules or infiltrates. LIVER: Normal size. No masses. No dilated ducts. SPLEEN: Normal size. No focal lesions. PANCREAS: No masses. No significant calcifications. No adjacent inflammation or peripancreatic fluid collections. Pancreatic duct not dilated. GALLBLADDER: Gallstones. No inflammatory changes to suggest cholecystitis. ADRENAL GLANDS: Subcentimeter adrenal nodules, stable. RIGHT KIDNEY AND URETER: No solid masses. No significant calcifications. No hydronephrosis or hyd roureter. LEFT KIDNEY AND URETER: No solid masses. No significant calcifications. No hydronephrosis or hydr oureter. AORTA AND VESSELS: No aneurysm. RETROPERITONEUM: No retroperitoneal adenopathy, hemorrhage or masses. BOWEL AND PERITONEAL CAVITY: No masses or inflammatory changes. No free fluid or peritoneal masses. APPENDIX: Surgically absent. ABDOMINAL WALL: No masses. No hernias. BONES: No significant or acute findings. OTHER: No other significant finding. IMPRESSION: No abscess or acute findings. Cholelithiasis. TECHNICAL DOCUMENTATION: JOB ID: [id number] Quality ID # [id number]: Final reports with documentation of one or more dose reduction techniques (e.g., Au tomated exposure control, adjustment of the mA and/or kV according to patient size, use of iterative reconstruction technique) 2010 [employer]- All Rights Reserved
== END ==
LOC: RAD 14:58
PROVIDERS: ATTEND Nurse Practitioner Family
DX: L02.211 Cutaneous abscess of abdominal wall (principal)
CPT/HCPCS: 74160

== ENCOUNTER → 2017-09-13 | Outpatient (CLI) | payer MEDICARE, OTHER ==
--- NOTE | 2017-09-13 17:23 | RADIOLOGY REPORT (SQ) ---
EXAM DESCRIPTION: CT ABD/PELVIS WITH IV ORAL COMPLETED DATE/TIME: 09/13/2017 3:08 pm REASON FOR STUDY: CUTANEOUS ABSCESS OF ABDOMINAL WALL L02.211 CUTANEOUS ABSCESS OF ABDOMINAL WALL COMPARISON: CT abdomen pelvis 05/10/2017 CT abdomen 08/26/2017 TECHNIQUE: CT scan of the abdomen and pelvis performed using helical scanning technique with dynamic intravenous contrast injection. No oral contrast. Images reviewed with lung, soft tissue, and bone windows. Reconstructed coronal and sagittal MPR images reviewed. Delayed images for evaluation of the urinary system also acquired. All images stored on PACS. All CT scanners at this facility use dose modulation, iterative reconstruction, and/or weight based d osing when appropriate to reduce radiation dose to as low as reasonably achievable (ALARA). [facility]: Dose Right [facility]: CareDose [facility]: Dose Right [facility]: Teradose 4D [facility]: [employer] CONTRAST TYPE AND DOSE: contrast/concentration: Isovue 370.00 mg/ml; Total Contrast Delivered: 70.0 ml; Total Saline Delivered: 66.0 ml RENAL FUNCTION: Creatinine 0.5 RADIATION DOSE: Up-to-date CT equipment and radiation dose reduction techniques were employed. CTDIv ol: 8.6 - 9.9 mGy. DLP: 834 mGy-cm.. LIMITATIONS: None. 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 Fistula appears to be between small bowel and the anterior abdominal wall, on axial images 48-55. Multiple air-fluid le vels in the right rectus muscle sheath are present containing oral contrast, together measuring about 6 x 3 cm in size. A wound VAC is seen over the midline periumbilical region. Just to the left of the wound VAC on the skin, there is a 5 cm inflamed lobule of fat in the superfic ial aspect of the anterior abdominal wall, which could be herniated mesenteric fat or could be inflam ed or infected anterior abdominal wall fat. This is best shown on axial image 61 and coronal image 1 3. Patient drank oral contrast. There is no evidence of bowel obstruction. No free intraperitoneal jeison kage of oral contrast. No free intraperitoneal air. Moderate stool throughout the colon with multiple descending and sigmoid colon diverticuli, no CT marissa dence of acute diverticulitis. LOWER CHEST: No significant findings. No nodules or infiltrates. Hiatal hernia LIVER: Normal size. No masses. No dilated ducts. SPLEEN: Normal size. No focal lesions. PANCREAS: No masses. No significant calcifications. No adjacent inflammation or peripancreatic fluid collections. Pancreatic duct not dilated. GALLBLADDER: 3 cm stone in the gallbladder. No gallbladder wall thickening worrisome for cholecystit is ADRENAL GLANDS: No significant masses or asymmetry. RIGHT KIDNEY AND URETER: No solid masses. No significant calcifications. No hydronephrosis or hyd roureter. LEFT KIDNEY AND URETER: No solid masses. No significant calcifications. No hydronephrosis or hydr oureter. AORTA AND VESSELS: No aneurysm. No dissection. Renal arteries, SMA, celiac without stenosis. RETROPERITONEUM: No retroperitoneal adenopathy, hemorrhage or masses. BOWEL AND PERITONEAL CAVITY: As above APPENDIX: Surgically absent PELVIS: No mass. No free fluid. Normal bladder. Normal size female pelvic organs ABDOMINAL WALL: As above BONES: Diffuse degenerative changes lumbar spine OTHER: No other significant finding. 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
== END ==
LOC: RAD 13:40
PROVIDERS: ATTEND Surgery
DX: L02.211 Cutaneous abscess of abdominal wall (principal)
CPT/HCPCS: 74177; 82565